=== PATIENT | female | born 1990 | race Caucasian/White ===

== ENCOUNTER → 2019-04-24 14:09 | Outpatient (CLI) | payer OTHER, SELFPAY ==
[2019-04-24 18:36] LABS: Bacteria Urine None Seen
[2019-04-24 19:12] LABS: Appearance Urine UA CLEAR; Bilirubin Urine UA NEGATIVE (NEGATIVE); Color Urine UA YELLOW; Glucose Urine UA NEGATIVE (Negative); Ketones Urine UA NEGATIVE (NEGATIVE); Leukocyte Esterase Urine UA TRACE (NEGATIVE); Nitrite Urine UA NEGATIVE (Negative); Occult Blood Urine UA NEGATIVE (Negative); Protein Urine UA NEGATIVE (Negative); Urobilinogen Urine UA 0.2 E.U./dL (0.2)
[2019-04-24 19:14] LABS: RBC Urine 0-1/HPF (0-5/HPF); WBC Urine 0-1/HPF (0-5/HPF)
== END ==
PROVIDERS: PCP Family Medicine; Visit Provider Family Medicine
DX: R30.0 Dysuria (principal)
CPT/HCPCS: 81001; 87086

== ENCOUNTER → 2019-04-26 07:32 | Outpatient (CLI) | payer OTHER, SELFPAY ==
--- NOTE | 2019-04-26 07:38 | DI.RAD.S_ITS ---
PROCEDURE: XR THORACIC SPINE 3V INDICATIONS: midline back pain approximately T11-12 level TECHNIQUE: 3 views of the thoracic spine were acquired. COMPARISON: None. FINDINGS: Bones: No fracture identified. Mild diffuse discogenic changes and endplate sclerosis. No definite disc space narrowing. Soft tissues: No paravertebral stripe thickening. IMPRESSION: Mild discogenic changes. No fracture. Dictated by: Kimani Frost M.D. on 04/26/2019 at 11:00 Approved by: Kimani Frost M.D. on 04/26/2019 at 11:07
[2019-04-26 09:02] LABS: Hemoglobin A1C% w Est Avg Glu 4.6 % (4.0-6.0)
[2019-04-26 09:12] LABS: Cholesterol 166 mg/dL (140-199); HDL Cholesterol 57 mg/dL (40-60); LDL Cholesterol Calculated 89 mg/dL (<100); Triglycerides 101 mg/dL (35-150)
[2019-04-26 09:44] LABS: Thyroid Stimulating Hormone 2.88 uIU/mL (0.47-4.68)
== END ==
PROVIDERS: PCP Family Medicine; Visit Provider Family Medicine
DX: M54.9 Dorsalgia, unspecified (principal); Z13.1 Encounter for screening for diabetes mellitus; Z13.220 Encounter for screening for lipoid disorders
CPT/HCPCS: 36415; 72072; 80061; 83036; 84443

== ENCOUNTER 2019-05-23 07:30 | Outpatient (RCR) | payer OTHER, SELFPAY ==
--- NOTE | 2019-04-23 17:00 | PT.OPPOC ---
Current Diagnoses Pain in right ankle and joints of right foot (04/23/19) Provider Visit Care Team Role Provider Type Roxy Loving MD Primary Care Provider Physician Specialty: Family Practice Address: [address] [place], [address] Email: [email or web address] ZACK Oliver Attending Provider Advanced Offset Duplicating Machine Operator Specialty: Medical Address: [facility], [address] Email: Plan Of Care PT-OP-T Assessment and Plan Start: 04/23/19 17:02 Freq: Status: Active Protocol: Document 04/23/19 17:04 RUBY (Rec: 04/23/19 17:07 RUBY [id number]) Physical Therapy Assessment Rehab Potential Rehabilitation Potential Good Evaluation Complexity Number of Personal Factors/Comorbidities 0 Number of Body Systems Impaired 1-2 Clinical Presentation at Evaluation Evolving Impairments Impairments Activity Tolerance Functional Mobility Pain Soft Tissue Mobility Strength Goals Four Impairment No HEP in place Alf Goal (LTG) Patient will report compliance and independence to ongoing progressive HEP to improve function. LTG Duration 4 wks Three Impairment Recurring right ankle sprain Alf Goal (LTG) Patient will have no report of ankle sprain in the next 6 weeks of weight bearing activities LTG Duration 5 wks Two Impairment Increasing symptoms with distance ambulation on uneven surface Flatwork Feeder Goal (LTG) Patient will have no report of increasing right ankle symptoms with more than 3 miles of ambulation on uneven surface. LTG Duration 4 wks One Impairment LEFS score of 62/80 Alf Goal (LTG) LEFS score of > 75 to enhance quality of life LTG Duration 4 wks Assessment Summary Assessment Pleasant 28 y/o F patient with a referring diagnosis of right ankle pain. Signs and symptoms identified as a right anterior talofibular and calcaneofibular ligament grade 1 sprain with remaining deficit of weaken evertors, tenderness due to high scarred soft tissue just below lateral malleolus and anterolateral TC joint just over bifurcate ankle ligaments . Muscular excursion reveals muscular imbalance with tight plantarflexors and evertors. Patient history and assessment reveals chronic type of injury that may persist if not treated earlier. Patient would greatly benefit with skilled PT to improve function by correcting muscular imbalance and educatiing patient with regards to safe high impact weight bearing activities at this time. Physical Therapy Plan Frequency and Duration Frequency of Treatment 2x/Week Duration of Treatment 6 weeks Plan of Care Start Date 04/23/19 Plan of Care End Date 06/04/19 Therapeutic Interventions Therapeutic Interventions Home Exercise Program Joint Mobilizations Manual Therapy Patient/Caregiver Education Self-Care/Home Management Soft Tissue Mobilization Taping Therapeutic Exercises Modalities Cold Pack/Ice Massage Electric Stimulation Hot Packs Ultrasound Next Visit Focus/Plan Next Note Type Treatment Note Next Visit Plan Manual therapy and modalities for pain, strengthening, coordination exercises. Plan of Care Dates Plan of Care Start Date 04/23/19 Plan of Care End Date 06/04/19 Please Sign and Return: I have reviewed this Plan of Care and certify that the skilled therapy services above are required to meet the patient?s needs. Physician Signature Date Printed Name and Credentials Clinical Instructor Signature Printed Name and Credentials
--- NOTE | 2019-04-23 17:00 | PT.OIE ---
Current Diagnoses Pain in right ankle and joints of right foot (04/23/19) Provider Visit Care Team Role Provider Type Roxy Loving MD Primary Care Provider Physician Specialty: Family Practice Address: [address] [place], [address] Email: [email or web address] ZACK Oliver Attending Provider Advanced Scuba Dive Training Instructor Specialty: Medical Address: [facility], [address] Email: Physical Therapy Initial Evaluation PT-OP-A Visit Information Start: 04/23/19 17:02 Freq: Status: Active Protocol: Document 04/23/19 17:00 EA (Rec: 04/24/19 07:32 EA [id number]) Out-Patient Physical Therapy Visit Information Visit Information Visit Type Initial Evaluation Visit Start Time 15:15 Visit Stop Time 16:00 Total Visit Minutes 35 Visit Number 1 Number of CERTIFIED RECREATIONAL THERAPIST Visits 0 Evaluation Information Evaluation Date 04/23/19 Precautions Precautions None identified PT-OP-B Current Condition Start: 04/23/19 17:02 Freq: Status: Active Protocol: Document 04/23/19 17:00 EA (Rec: 04/24/19 07:32 EA [id number]) Current Condition History of Current Condition Onset Date 2 months ago Current Complaints Right ankle pain History of Current Condition Patient reports present c/o right ankle pain started 2 months ago. She reports multiple history of both ankle sprain with no required hospitalization and healed with no formal PT. She reports pain mostly managed with ICE and OTC pain meds. She reports has very active lifestyle with regular few times a week of trail hiking which most of the time where she rolled her ankle. She denies diagnostic imaging in the past. Prior Treatments and Tests No formal treatment reported. No Imaging performed in the past. Future Testing and Treatments Planned None reported Treatment Goals Patient/Caregiver Goals 1. Patient would like to eliminate the pain. 2. To know ankle exercises to prevent recurrent ankle sprain . 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 [place] hiking. Current Functional Impairments (Reported) Functional Limitations- ADL's Indep with minimal difficulty in prolong standing Functional Limitations- Mobility/Gait Indep with no AD with no gait deviation Functional Limitations- Work/School Limited with prolong standing Functional Limitations- Recreation/ Pain increases with prolong Hobbies walking Personal Factors Other Personal Factors That May Effect None identified Therapy/Recovery PT-OP-C Subjective Start: 04/23/19 17:02 Freq: Status: Active Protocol: Document 04/23/19 17:00 EA (Rec: 04/25/19 07:20 EA [id number]) OP-PT Subjective Patient Comments Patient Comments Pt states nocturnal pain and mostly when ankle in inverted position Patient Reported Progress Same Patient Questionnaires Lower Extremity Functional Scale LEFS Score 62 LEFS Impairment 20 to 39% Impaired (Score 48- 62) OP-PT Pain Assessment Pain Assessment Grid Paper Pain Assessment Grid Completed Yes Location Right Lateral Ankle Pain Location Details Just below malleolus and anterolateral ankle joint Intensity 4 Scale Used Numeric (1 - 10) Description Aching Tender Tightness Pain Aggravating Factors Position Activity Standing Walking Dependent Position Patient Stated Pain Goal 0 PT-OP-F Manual Assessment Start: 04/23/19 17:02 Freq: Status: Active Protocol: Document 04/23/19 17:00 EA (Rec: 04/24/19 17:42 EA [id number]) Manual Assessments Soft Tissue Assessment Soft Tissue Mobility Assessment Tightness to Right ankle PF, Invertors Joint Mobility Assessment Joint Mobility Assessment Normal TC joint mobility. PT-OP-G Mobility & Gait Start: 04/23/19 17:02 Freq: Status: Active Protocol: Document 04/23/19 07:00 EA (Rec: 04/25/19 07:23 EA [id number]) OP Gait Assessment Comments Gait Comments Gait identified with near to normal gait Stair Climbing Evaluation Comments Stair Climbing Comments Min difficulty with stair descent leading with left PT-OP-J Posture/Palpation/Skin Start: 04/23/19 17:02 Freq: Status: Active Protocol: Document 04/23/19 17:00 EA (Rec: 04/24/19 17:42 EA [id number]) Posture Evaluation Comments Posture Comments Forefoot varus,right Palpation Assessment Location One Palpation Location Right ant talofib, calcaneofib lig Palpation Findings Tenderness PT-OP-K Range of Motion Start: 04/23/19 17:02 Freq: Status: Active Protocol: Document 04/23/19 17:10 EA (Rec: 04/23/19 17:13 EA [id number]) Hip Goniometric Range of Motion Hip Right Active Hip ROM WFL Yes Knee Goniometric Range of Motion Knee Right Knee ROM WFL Yes Ankle and Foot Goniometric Range of Motion Ankle and Foot Right Active Ankle/Foot ROM WFL Yes PT-OP-L Special Tests Start: 04/23/19 17:02 Freq: Status: Active Protocol: Document 04/23/19 17:13 EA (Rec: 04/23/19 17:14 EA [id number]) Special Tests Foot/Ankle Special Tests Rodriguez Test Results - Anterior Draw Test Results - Talor Tilt Test Results Varus + PT-OP-M Strength Start: 04/23/19 17:02 Freq: Status: Active Protocol: Document 04/23/19 17:10 EA (Rec: 04/23/19 17:13 EA [id number]) Ankle/Foot Strength Ankle and Foot Manual Muscle Testing Left Dorsiflexion (L4) 5 Normal Plantarflexion (S1) 5 Normal Inversion 5 Normal Eversion (S1) 5 Normal Right Dorsiflexion (L4) 5 Normal Plantarflexion (S1) 5 Normal Inversion 5 Normal Eversion (S1) 4- Good- PT-OP-Q Treatments Start: 04/23/19 17:02 Freq: Status: Active Protocol: Document 04/23/19 17:10 EA (Rec: 04/23/19 17:13 EA [id number]) Manual Therapy Treatment Soft Tissue Mobilization 1 Body Location lateral ankle joint/ligaments Mobilization Type Cross-Friction Myofascial Release Intensity/Depth Moderate PT-OP-T Assessment and Plan Start: 04/23/19 17:02 Freq: Status: Active Protocol: Document 04/23/19 17:04 EA (Rec: 04/23/19 17:07 EA [id number]) Physical Therapy Assessment Rehab Potential Rehabilitation Potential Good Evaluation Complexity Number of Personal Factors/Comorbidities 0 Number of Body Systems Impaired 1-2 Clinical Presentation at Evaluation Evolving Impairments Impairments Activity Tolerance Functional Mobility Pain Soft Tissue Mobility Strength Goals Four Impairment No HEP in place Seamless Tube Drawer Goal (LTG) Patient will report compliance and independence to ongoing progressive HEP to improve function. LTG Duration 4 wks Three Impairment Recurring right ankle sprain Skilled Nursing Goal (LTG) Patient will have no report of ankle sprain in the next 6 weeks of weight bearing activities LTG Duration 5 wks Two Impairment Increasing symptoms with distance ambulation on uneven surface Seamless Tube Drawer Goal (LTG) Patient will have no report of increasing right ankle symptoms with more than 3 miles of ambulation on uneven surface. LTG Duration 4 wks One Impairment LEFS score of 62/80 Skilled Nursing Goal (LTG) LEFS score of > 75 to enhance quality of life LTG Duration 4 wks Assessment Summary Assessment Pleasant 28 y/o F patient with a referring diagnosis of right ankle pain. Signs and symptoms identified as a right anterior talofibular and calcaneofibular ligament grade 1 sprain with remaining deficit of weaken evertors, tenderness due to high scarred soft tissue just below lateral malleolus and anterolateral TC joint just over bifurcate ankle ligaments . Muscular excursion reveals muscular imbalance with tight plantarflexors and evertors. Patient history and assessment reveals chronic type of injury that may persist if not treated earlier. Patient would greatly benefit with skilled PT to improve function by correcting muscular imbalance and educatiing patient with regards to safe high impact weight bearing activities at this time. Physical Therapy Plan Frequency and Duration Frequency of Treatment 2x/Week Duration of Treatment 6 weeks Plan of Care Start Date 04/23/19 Plan of Care End Date 06/04/19 Therapeutic Interventions Therapeutic Interventions Home Exercise Program Joint Mobilizations Manual Therapy Patient/Caregiver Education Self-Care/Home Management Soft Tissue Mobilization Taping Therapeutic Exercises Modalities Cold Pack/Ice Massage Electric Stimulation Hot Packs Ultrasound Next Visit Focus/Plan Next Note Type Treatment Note Next Visit Plan Manual therapy and modalities for pain, strengthening, coordination exercises.
--- NOTE | 2019-04-25 12:04 | PT.OTN ---
Current Diagnoses Pain in right ankle and joints of right foot (04/25/19) Physical Therapy Treatment Note PT-OP-A Visit Information Start: 04/23/19 17:02 Freq: Status: Active Protocol: Document 04/25/19 10:23 EA (Rec: 04/25/19 10:31 EA [id number]) Out-Patient Physical Therapy Visit Information Visit Information Visit Type Treatment Note Visit Start Time 09:45 Visit Stop Time 10:30 Total Visit Minutes 45 Visit Number 2 PT-OP-B Current Condition Start: 04/23/19 17:02 Freq: Status: Active Protocol: Document 04/23/19 17:00 EA (Rec: 04/24/19 07:32 EA [id number]) Current Condition History of Current Condition Onset Date 2 months ago Current Complaints Right ankle pain History of Current Condition Patient reports present c/o right ankle pain started 2 months ago. She reports multiple history of both ankle sprain with no required hospitalization and healed with no formal PT. She reports pain mostly managed with ICE and OTC pain meds. She reports has very active lifestyle with regular few times a week of trail hiking which most of the time where she rolled her ankle. She denies diagnostic imaging in the past. Prior Treatments and Tests No formal treatent reported. No Imaging performed in the past. Future Testing and Treatments Planned None reported Treatment Goals Patient/Caregiver Goals 1. Patient would like to eliminate the pain. 2. To know ankle exercises to prevent recurrent ankle sprain . 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 [place] hiking. Current Functional Impairments (Reported) Functional Limitations- ADL's Indep with minimal difficulty in prolong standing Functional Limitations- Mobility/Gait Indep with no AD with no gait deviation Functional Limitations- Work/School Limited with prolong standing Functional Limitations- Recreation/ Pain increases with prolong Hobbies walking Personal Factors Other Personal Factors That May Effect None identified Therapy/Recovery PT-OP-C Subjective Start: 04/23/19 17:02 Freq: Status: Active Protocol: Document 04/25/19 10:31 EA (Rec: 04/25/19 10:31 EA [id number]) OP-PT Subjective Patient Comments Patient Comments Pt reports compliant with HEP. PT-OP-F Manual Assessment Start: 04/23/19 17:02 Freq: Status: Active Protocol: Document 04/23/19 17:00 EA (Rec: 04/24/19 17:42 EA [id number]) Manual Assessments Soft Tissue Assessment Soft Tissue Mobility Assessment Tightness to Right ankle PF, Invertors Joint Mobility Assessment Joint Mobility Assessment Normal TC joint mobility. PT-OP-G Mobility & Gait Start: 04/23/19 17:02 Freq: Status: Active Protocol: Document 04/23/19 07:00 EA (Rec: 04/25/19 07:23 EA [id number]) OP Gait Assessment Comments Gait Comments Gait identified with near to normal gait Stair Climbing Evaluation Comments Stair Climbing Comments Min difficulty with stair descent leading with left PT-OP-J Posture/Palpation/Skin Start: 04/23/19 17:02 Freq: Status: Active Protocol: Document 04/23/19 17:00 EA (Rec: 04/24/19 17:42 EA [id number]) Posture Evaluation Comments Posture Comments Forefoot varus,right Palpation Assessment Location One Palpation Location Right ant talofib, calcaneofib lig Palpation Findings Tenderness PT-OP-K Range of Motion Start: 04/23/19 17:02 Freq: Status: Active Protocol: Document 04/23/19 17:10 EA (Rec: 04/23/19 17:13 EA [id number]) Hip Goniometric Range of Motion Hip Right Active Hip ROM WFL Yes Knee Goniometric Range of Motion Knee Right Knee ROM WFL Yes Ankle and Foot Goniometric Range of Motion Ankle and Foot Right Active Ankle/Foot ROM WFL Yes PT-OP-L Special Tests Start: 04/23/19 17:02 Freq: Status: Active Protocol: Document 04/23/19 17:13 EA (Rec: 04/23/19 17:14 EA [id number]) Special Tests Foot/Ankle Special Tests Rodriguez Test Results - Anterior Draw Test Results - Talor Tilt Test Results Varus + PT-OP-M Strength Start: 04/23/19 17:02 Freq: Status: Active Protocol: Document 04/23/19 17:10 EA (Rec: 04/23/19 17:13 EA [id number]) Ankle/Foot Strength Ankle and Foot Manual Muscle Testing Left Dorsiflexion (L4) 5 Normal Plantarflexion (S1) 5 Normal Inversion 5 Normal Eversion (S1) 5 Normal Right Dorsiflexion (L4) 5 Normal Plantarflexion (S1) 5 Normal Inversion 5 Normal Eversion (S1) 4- Good- PT-OP-Q Treatments Start: 04/23/19 17:02 Freq: Status: Active Protocol: Document 04/25/19 10:23 EA (Rec: 04/25/19 10:31 EA [id number]) Cardio Equipment Treadmill Duration (Minutes) 6 Speed 2-3 Incline 0-18 Therapeutic Exercises Sitting Exercises 1 Sitting Exercise Name Ankle eversion Side right Equipment Used YTB/GTB Reps/Minutes x12 reps each Standing Exercises 2 Standing Exercise Name calf stretch: straight and bent knee Side right Reps/Minutes x 3 reps x 30SH 1 Standing Exercise Name Steady lunges Side bilateral Reps/Minutes 10 reps each Manual Therapy Treatment Soft Tissue Mobilization 1 Body Location lateral ankle joint/ligaments, triceps surae Mobilization Type Cross-Friction Myofascial Release Sustained Pressure Intensity/Depth Moderate Body Position Sitting PT-OP-R Modalities Start: 04/23/19 17:02 Freq: Status: Active Protocol: Document 04/25/19 10:23 EA (Rec: 04/25/19 10:31 EA [id number]) Hot Pack/Cold Pack Treatment Cold Pack Location right ankle Patient Position Sitting Treatment Duration (minutes) 10 Patient Tolerance Good Ultrasound Therapy Treatment Right Lateral Ankle Treatment Duration (minutes) 5 Coupling Medium Ultrasound Gel Mode Setting Continuous Intensity Setting (w/cm2) 1.0 PT-OP-T Assessment and Plan Start: 04/23/19 17:02 Freq: Status: Active Protocol: Document 04/25/19 10:23 EA (Rec: 04/25/19 10:31 EA [id number]) Physical Therapy Assessment Assessment Summary Assessment Patient requires cues with lunges to correct form. Overall she tolerated manual therapy. Physical Therapy Plan Next Visit Focus/Plan Next Note Type Treatment Note Next Visit Plan re-assess last treatment session
--- NOTE | 2019-04-30 12:09 | PT.OTN ---
Current Diagnoses Pain in right ankle and joints of right foot (04/30/19) Physical Therapy Treatment Note PT-OP-A Visit Information Start: 04/23/19 17:02 Freq: Status: Active Protocol: Document 04/30/19 10:29 EA (Rec: 04/30/19 10:37 EA [id number]) Out-Patient Physical Therapy Visit Information Visit Information Visit Type Treatment Note Visit Start Time 09:45 Visit Stop Time 10:30 Total Visit Minutes 45 Visit Number 3 PT-OP-B Current Condition Start: 04/23/19 17:02 Freq: Status: Active Protocol: Document 04/23/19 17:00 EA (Rec: 04/24/19 07:32 EA [id number]) Current Condition History of Current Condition Onset Date 2 months ago Current Complaints Right ankle pain History of Current Condition Patient reports present c/o right ankle pain started 2 months ago. She reports multiple history of both ankle sprain with no required hospitalization and healed with no formal PT. She reports pain mostly managed with ICE and OTC pain meds. She reports has very active lifestyle with regular few times a week of trail hiking which most of the time where she rolled her ankle. She denies diagnostic imaging in the past. Prior Treatments and Tests No formal treatent reported. No Imaging performed in the past. Future Testing and Treatments Planned None reported Treatment Goals Patient/Caregiver Goals 1. Patient would like to eliminate the pain. 2. To know ankle exercises to prevent recurrent ankle sprain . 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 [place] hiking. Current Functional Impairments (Reported) Functional Limitations- ADL's Indep with minimal difficulty in prolong standing Functional Limitations- Mobility/Gait Indep with no AD with no gait deviation Functional Limitations- Work/School Limited with prolong standing Functional Limitations- Recreation/ Pain increases with prolong Hobbies walking Personal Factors Other Personal Factors That May Effect None identified Therapy/Recovery PT-OP-C Subjective Start: 04/23/19 17:02 Freq: Status: Active Protocol: Document 04/30/19 10:29 EA (Rec: 04/30/19 10:37 EA [id number]) OP-PT Subjective Patient Comments Patient Comments Pt reports would like to learn more about ankle stability exercises; states last session feels good and no increased of symptoms. PT-OP-F Manual Assessment Start: 04/23/19 17:02 Freq: Status: Active Protocol: Document 04/23/19 17:00 EA (Rec: 04/24/19 17:42 EA [id number]) Manual Assessments Soft Tissue Assessment Soft Tissue Mobility Assessment Tightness to Right ankle PF, Invertors Joint Mobility Assessment Joint Mobility Assessment Normal TC joint mobility. PT-OP-G Mobility & Gait Start: 04/23/19 17:02 Freq: Status: Active Protocol: Document 04/23/19 07:00 EA (Rec: 04/25/19 07:23 EA [id number]) OP Gait Assessment Comments Gait Comments Gait identified with near to normal gait Stair Climbing Evaluation Comments Stair Climbing Comments Min difficulty with stair descent leading with left PT-OP-J Posture/Palpation/Skin Start: 04/23/19 17:02 Freq: Status: Active Protocol: Document 04/23/19 17:00 EA (Rec: 04/24/19 17:42 EA [id number]) Posture Evaluation Comments Posture Comments Forefoot varus,right Palpation Assessment Location One Palpation Location Right ant talofib, calcaneofib lig Palpation Findings Tenderness PT-OP-K Range of Motion Start: 04/23/19 17:02 Freq: Status: Active Protocol: Document 04/23/19 17:10 EA (Rec: 04/23/19 17:13 EA [id number]) Hip Goniometric Range of Motion Hip Right Active Hip ROM WFL Yes Knee Goniometric Range of Motion Knee Right Knee ROM WFL Yes Ankle and Foot Goniometric Range of Motion Ankle and Foot Right Active Ankle/Foot ROM WFL Yes PT-OP-L Special Tests Start: 04/23/19 17:02 Freq: Status: Active Protocol: Document 04/23/19 17:13 EA (Rec: 04/23/19 17:14 EA [id number]) Special Tests Foot/Ankle Special Tests Rodriguez Test Results - Anterior Draw Test Results - Talor Tilt Test Results Varus + PT-OP-M Strength Start: 04/23/19 17:02 Freq: Status: Active Protocol: Document 04/23/19 17:10 EA (Rec: 07/30/19 17:13 EA [id number]) Ankle/Foot Strength Ankle and Foot Manual Muscle Testing Left Dorsiflexion (L4) 5 Normal Plantarflexion (S1) 5 Normal Inversion 5 Normal Eversion (S1) 5 Normal Right Dorsiflexion (L4) 5 Normal Plantarflexion (S1) 5 Normal Inversion 5 Normal Eversion (S1) 4- Good- PT-OP-Q Treatments Start: 04/23/19 17:02 Freq: Status: Active Protocol: Document 04/30/19 10:29 EA (Rec: 04/30/19 10:37 EA [id number]) Cardio Equipment Elliptical Duration (Minutes) 5 Resistance 1 Gym Equipment Sport Cord 1 Exercise Details Right side step Cord/Resistance red Reps/Duration x 10 reps x 2 sets Comments Pause to middle for stability Therapeutic Exercises Sitting Exercises 1 Sitting Exercise Name Ankle eversion Side right Equipment Used YTB/GTB Reps/Minutes x12 reps each Standing Exercises 5 Standing Exercise Name Floors square bent knee Reps/Minutes x 3 laps; l;okiing to without looking Comments In/out steps; slow to fast 4 Standing Exercise Name BUSO Squats Reps/Minutes x 12 reps 3 Standing Exercise Name BUSO step up/down, side in and out Reps/Minutes x 30 secs x 3 2 Standing Exercise Name calf stretch: straight and bent knee Side right Reps/Minutes x 3 reps x 30SH 1 Standing Exercise Name Steady lunges Side bilateral Reps/Minutes 10 reps each Comments BUSO: right and left Manual Therapy Treatment Soft Tissue Mobilization 1 Body Location lateral ankle joint/ligaments, triceps surae Mobilization Type Cross-Friction Myofascial Release Sustained Pressure Intensity/Depth Moderate Body Position Sitting PT-OP-R Modalities Start: 04/23/19 17:02 Freq: Status: Active Protocol: Document 04/30/19 10:29 EA (Rec: 04/30/19 10:37 EA [id number]) Hot Pack/Cold Pack Treatment Cold Pack Location right ankle Patient Position Sitting Treatment Duration (minutes) 10 Patient Tolerance Good PT-OP-T Assessment and Plan Start: 04/23/19 17:02 Freq: Status: Active Protocol: Document 04/30/19 10:29 EA (Rec: 04/30/19 10:37 EA [id number]) Physical Therapy Assessment Assessment Summary Assessment Pt tolerated treatment well. Less tender to lateral ankle noted at this time. Patient is progressing well. Physical Therapy Plan Next Visit Focus/Plan Next Note Type Treatment Note Advance to dynamic ankle stability exercises
--- NOTE | 2019-05-03 09:47 | PT.OTN ---
Current Diagnoses Pain in right ankle and joints of right foot (05/03/19) Physical Therapy Treatment Note PT-OP-A Visit Information Start: 04/23/19 17:02 Freq: Status: Active Protocol: Document 05/03/19 09:45 GGD (Rec: 05/03/19 13:46 GGD [id number]) Out-Patient Physical Therapy Visit Information Visit Information Visit Type Treatment Note Visit Start Time 09:02 Visit Stop Time 09:47 Total Visit Minutes 45 Visit Number 4 Number of CELL BIOLOGY SCIENTIST Visits 1 PT-OP-B Current Condition Start: 04/23/19 17:02 Freq: Status: Active Protocol: Document 04/23/19 17:00 EA (Rec: 04/24/19 07:32 EA [id number]) Current Condition History of Current Condition Onset Date 2 months ago Current Complaints Right ankle pain History of Current Condition Patient reports present c/o right ankle pain started 2 months ago. She reports multiple history of both ankle sprain with no required hospitalization and healed with no formal PT. She reports pain mostly managed with ICE and OTC pain meds. She reports has very active lifestyle with regular few times a week of trail hiking which most of the time where she rolled her ankle. She denies diagnostic imaging in the past. Prior Treatments and Tests No formal treatent reported. No Imaging performed in the past. Future Testing and Treatments Planned None reported Treatment Goals Patient/Caregiver Goals 1. Patient would like to eliminate the pain. 2. To know ankle exercises to prevent recurrent ankle sprain . 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 [place]. Current Functional Impairments (Reported) Functional Limitations- ADL's Indep with minimal difficulty in prolong standing Functional Limitations- Mobility/Gait Indep with no AD with no gait deviation Functional Limitations- Work/School Limited with prolong standing Functional Limitations- Recreation/ Pain increases with prolong Hobbies walking Personal Factors Other Personal Factors That May Effect None identified Therapy/Recovery PT-OP-C Subjective Start: 04/23/19 17:02 Freq: Status: Active Protocol: Document 05/03/19 09:45 GGD (Rec: 05/03/19 13:46 GGD [id number]) OP-PT Subjective Patient Comments Patient Comments Pt states her ankle has been hurting at night. PT-OP-F Manual Assessment Start: 04/23/19 17:02 Freq: Status: Active Protocol: Document 04/23/19 17:00 EA (Rec: 04/24/19 17:42 EA [id number]) Manual Assessments Soft Tissue Assessment Soft Tissue Mobility Assessment Tightness to Right ankle PF, Invertors Joint Mobility Assessment Joint Mobility Assessment Normal TC joint mobility. PT-OP-G Mobility & Gait Start: 04/23/19 17:02 Freq: Status: Active Protocol: Document 04/23/19 07:00 EA (Rec: 04/25/19 07:23 EA [id number]) OP Gait Assessment Comments Gait Comments Gait identified with near to normal gait Stair Climbing Evaluation Comments Stair Climbing Comments Min difficulty with stair descent leading with left PT-OP-J Posture/Palpation/Skin Start: 04/23/19 17:02 Freq: Status: Active Protocol: Document 04/23/19 17:00 EA (Rec: 04/24/19 17:42 EA [id number]) Posture Evaluation Comments Posture Comments Forefoot varus,right Palpation Assessment Location One Palpation Location Right ant talofib, calcaneofib lig Palpation Findings Tenderness PT-OP-K Range of Motion Start: 04/23/19 17:02 Freq: Status: Active Protocol: Document 04/23/19 17:10 EA (Rec: 04/23/19 17:13 EA [id number]) Hip Goniometric Range of Motion Hip Right Active Hip ROM WFL Yes Knee Goniometric Range of Motion Knee Right Knee ROM WFL Yes Ankle and Foot Goniometric Range of Motion Ankle and Foot Right Active Ankle/Foot ROM WFL Yes PT-OP-L Special Tests Start: 04/23/19 17:02 Freq: Status: Active Protocol: Document 04/23/19 17:13 EA (Rec: 04/23/19 17:14 EA [id number]) Special Tests Foot/Ankle Special Tests Rodriguez Test Results - Anterior Draw Test Results - Talor Tilt Test Results Varus + PT-OP-M Strength Start: 04/23/19 17:02 Freq: Status: Active Protocol: Document 04/23/19 17:10 EA (Rec: 04/23/19 17:13 EA [id number]) Ankle/Foot Strength Ankle and Foot Manual Muscle Testing Left Dorsiflexion (L4) 5 Normal Plantarflexion (S1) 5 Normal Inversion 5 Normal Eversion (S1) 5 Normal Right Dorsiflexion (L4) 5 Normal Plantarflexion (S1) 5 Normal Inversion 5 Normal Eversion (S1) 4- Good- PT-OP-Q Treatments Start: 04/23/19 17:02 Freq: Status: Active Protocol: Document 05/03/19 09:45 GGD (Rec: 05/03/19 13:46 GGD [id number]) Gym Equipment Shuttle Balance 2 Details red Reps/Duration 5 min Comments squats, step stance EC, side NBOS and step stance Sport Cord 1 Exercise Details Right side step Cord/Resistance red Reps/Duration x 10 reps x 2 sets Comments Pause to middle for stability Therapeutic Exercises Sitting Exercises 2 Sitting Exercise Name hip IR/ER Side bilateral Equipment Used Level 3 Reps/Minutes 10 Standing Exercises squats Standing Exercise Name SL and double leg. Side bilateral Reps/Minutes 10 x 2 Standing Exercise Name calf stretch: straight and bent knee Side right Reps/Minutes x 3 reps x 30SH Manual Therapy Treatment Soft Tissue Mobilization 1 Body Location lateral ankle joint/ligaments, triceps surae Mobilization Type Cross-Friction Myofascial Release Sustained Pressure Intensity/Depth Moderate Body Position Sitting PT-OP-R Modalities Start: 04/23/19 17:02 Freq: Status: Active Protocol: Document 04/30/19 10:29 EA (Rec: 04/30/19 10:37 EA [id number]) Hot Pack/Cold Pack Treatment Cold Pack Location right ankle Patient Position Sitting Treatment Duration (minutes) 10 Patient Tolerance Good PT-OP-T Assessment and Plan Start: 04/23/19 17:02 Freq: Status: Active Protocol: Document 05/03/19 09:45 GGD (Rec: 05/03/19 13:46 GGD [email or web address]) Physical Therapy Assessment Assessment Summary Assessment Pt needed cues for foot control with exercise. She continue to have tenderness to lateral ankle. Physical Therapy Plan Next Visit Focus/Plan Next Note Type Treatment Note Next Visit Plan Progress strengthening,
--- NOTE | 2019-05-07 10:41 | PT.OTN ---
Current Diagnoses Pain in right ankle and joints of right foot (05/07/19) Physical Therapy Treatment Note PT-OP-A Visit Information Start: 04/23/19 17:02 Freq: Status: Active Protocol: Document 05/07/19 10:27 EA (Rec: 05/07/19 10:33 EA [id number]) Out-Patient Physical Therapy Visit Information Visit Information Visit Type Treatment Note Visit Start Time 09:45 Visit Stop Time 10:30 Total Visit Minutes 45 Visit Number 5 Number of PRESS TENDER Visits 2 PT-OP-B Current Condition Start: 04/23/19 17:02 Freq: Status: Active Protocol: Document 04/23/19 17:00 EA (Rec: 04/24/19 07:32 EA [id number]) Current Condition History of Current Condition Onset Date 2 months ago Current Complaints Right ankle pain History of Current Condition Patient reports present c/o right ankle pain started 2 months ago. She reports multiple history of both ankle sprain with no required hospitalization and healed with no formal PT. She reports pain mostly managed with ICE and OTC pain meds. She reports has very active lifestyle with regular few times a week of trail hiking which most of the time where she rolled her ankle. She denies diagnostic imaging in the past. Prior Treatments and Tests No formal treatent reported. No Imaging performed in the past. Future Testing and Treatments Planned None reported Treatment Goals Patient/Caregiver Goals 1. Patient would like to eliminate the pain. 2. To know ankle exercises to prevent recurrent ankle sprain . 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 [place] hiking. Current Functional Impairments (Reported) Functional Limitations- ADL's Indep with minimal difficulty in prolong standing Functional Limitations- Mobility/Gait Indep with no AD with no gait deviation Functional Limitations- Work/School Limited with prolong standing Functional Limitations- Recreation/ Pain increases with prolong Hobbies walking Personal Factors Other Personal Factors That May Effect None identified Therapy/Recovery PT-OP-C Subjective Start: 04/23/19 17:02 Freq: Status: Active Protocol: Document 05/07/19 10:27 EA (Rec: 05/07/19 10:33 EA [id number]) OP-PT Subjective Patient Comments Patient Comments Pt reports changed shoes at this time due to frequent ankle rolling without injury every after session. She reports that pain at night and with mobility is located just below medial malleolus; states tender but not with activity. PT-OP-F Manual Assessment Start: 04/23/19 17:02 Freq: Status: Active Protocol: Document 04/23/19 17:00 EA (Rec: 04/24/19 17:42 EA [id number]) Manual Assessments Soft Tissue Assessment Soft Tissue Mobility Assessment Tightness to Right ankle PF, Invertors Joint Mobility Assessment Joint Mobility Assessment Normal TC joint mobility. PT-OP-G Mobility & Gait Start: 04/23/19 17:02 Freq: Status: Active Protocol: Document 04/23/19 07:00 EA (Rec: 04/25/19 07:23 EA [id number]) OP Gait Assessment Comments Gait Comments Gait identified with near to normal gait Stair Climbing Evaluation Comments Stair Climbing Comments Min difficulty with stair descent leading with left PT-OP-J Posture/Palpation/Skin Start: 04/23/19 17:02 Freq: Status: Active Protocol: Document 04/23/19 17:00 EA (Rec: 04/24/19 17:42 EA [id number]) Posture Evaluation Comments Posture Comments Forefoot varus,right Palpation Assessment Location One Palpation Location Right ant talofib, calcaneofib lig Palpation Findings Tenderness PT-OP-K Range of Motion Start: 04/23/19 17:02 Freq: Status: Active Protocol: Document 04/23/19 17:10 EA (Rec: 04/23/19 17:13 EA [id number]) Hip Goniometric Range of Motion Hip Right Active Hip ROM WFL Yes Knee Goniometric Range of Motion Knee Right Knee ROM WFL Yes Ankle and Foot Goniometric Range of Motion Ankle and Foot Right Active Ankle/Foot ROM WFL Yes PT-OP-L Special Tests Start: 04/23/19 17:02 Freq: Status: Active Protocol: Document 04/23/19 17:13 EA (Rec: 04/23/19 17:14 EA [id number]) Special Tests Foot/Ankle Special Tests Rodriguez Test Results - Anterior Draw Test Results - Talor Tilt Test Results Varus + PT-OP-M Strength Start: 04/23/19 17:02 Freq: Status: Active Protocol: Document 04/23/19 17:10 EA (Rec: 04/23/19 17:13 EA [id number]) Ankle/Foot Strength Ankle and Foot Manual Muscle Testing Left Dorsiflexion (L4) 5 Normal Plantarflexion (S1) 5 Normal Inversion 5 Normal Eversion (S1) 5 Normal Right Dorsiflexion (L4) 5 Normal Plantarflexion (S1) 5 Normal Inversion 5 Normal Eversion (S1) 4- Good- PT-OP-Q Treatments Start: 04/23/19 17:02 Freq: Status: Active Protocol: Document 05/07/19 10:27 EA (Rec: 05/07/19 10:33 EA [id number]) Therapeutic Exercises Sitting Exercises 2 Sitting Exercise Name hip IR Side bilateral Equipment Used Yellow to green Reps/Minutes 8-12 x 2 sets 1 Sitting Exercise Name Ankle inversion Side right Equipment Used YTB/GTB Reps/Minutes x12 reps each Standing Exercises squats Standing Exercise Name SL and double leg. Side bilateral Reps/Minutes 10 x Comments with toes curling and increased arches 2 Standing Exercise Name calf stretch: straight and bent knee Side right Reps/Minutes x 3 reps x 30SH Self-Care/Home Management Treatment Education Patient Education Home Exercise Program Joint Protection Pain Management Posture PT-OP-R Modalities Start: 04/23/19 17:02 Freq: Status: Active Protocol: Document 05/07/19 10:27 EA (Rec: 05/07/19 10:33 EA [id number]) Hot Pack/Cold Pack Treatment Cold Pack Location right ankle Patient Position Sitting Treatment Duration (minutes) 10 Patient Tolerance Good Ultrasound Therapy Treatment Right Medial Distal Ankle Treatment Duration (minutes) 4 Patient Position Sitting Frequency Setting (mHz) 3 Intensity Setting (w/cm2) 1 PT-OP-T Assessment and Plan Start: 04/23/19 17:02 Freq: Status: Active Protocol: Document 05/07/19 10:33 EA (Rec: 05/07/19 10:38 EA [id number]) Physical Therapy Assessment Assessment Summary Assessment Performed quick MMT and reveals weaken both HIP internal rotators , right ankle invertors with a grade of 4-/5. Foot posture reveals slight everted and depressed right foot which indicating weak invertors. No noted any signs of acute inflammation. Educated and demonstrates with HEP additions with clear understanding. Physical Therapy Plan Next Visit Focus/Plan Next Note Type Treatment Note Next Visit Plan cont with isolate right ankle and both hip IR srengthening
--- NOTE | 2019-05-09 12:54 | PT.OTN ---
Current Diagnoses Pain in right ankle and joints of right foot (05/09/19) Physical Therapy Treatment Note PT-OP-A Visit Information Start: 04/23/19 17:02 Freq: Status: Active Protocol: Document 05/09/19 10:30 EA (Rec: 05/09/19 10:34 EA [id number]) Out-Patient Physical Therapy Visit Information Visit Information Visit Type Treatment Note Visit Start Time 09:45 Visit Stop Time 10:30 Total Visit Minutes 48 Visit Number 6 Number of RELEASE SPECIALIST Visits 2 PT-OP-B Current Condition Start: 04/23/19 17:02 Freq: Status: Active Protocol: Document 04/23/19 17:00 EA (Rec: 04/24/19 07:32 EA [id number]) Current Condition History of Current Condition Onset Date 2 months ago Current Complaints Right ankle pain History of Current Condition Patient reports present c/o right ankle pain started 2 months ago. She reports multiple history of both ankle sprain with no required hospitalization and healed with no formal PT. She reports pain mostly managed with ICE and OTC pain meds. She reports has very active lifestyle with regular few times a week of trail hiking which most of the time where she rolled her ankle. She denies diagnostic imaging in the past. Prior Treatments and Tests No formal treatent reported. No Imaging performed in the past. Future Testing and Treatments Planned None reported Treatment Goals Patient/Caregiver Goals 1. Patient would like to eliminate the pain. 2. To know ankle exercises to prevent recurrent ankle sprain . 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 [place] hiking. Current Functional Impairments (Reported) Functional Limitations- ADL's Indep with minimal difficulty in prolong standing Functional Limitations- Mobility/Gait Indep with no AD with no gait deviation Functional Limitations- Work/School Limited with prolong standing Functional Limitations- Recreation/ Pain increases with prolong Hobbies walking Personal Factors Other Personal Factors That May Effect None identified Therapy/Recovery PT-OP-C Subjective Start: 04/23/19 17:02 Freq: Status: Active Protocol: Document 05/09/19 10:30 EA (Rec: 05/09/19 10:34 EA [id number]) OP-PT Subjective Patient Comments Patient Comments Pt reports no pain or discomfort in the last 2 days; states feeling much better. PT-OP-F Manual Assessment Start: 04/23/19 17:02 Freq: Status: Active Protocol: Document 04/23/19 17:00 EA (Rec: 04/24/19 17:42 EA [id number]) Manual Assessments Soft Tissue Assessment Soft Tissue Mobility Assessment Tightness to Right ankle PF, Invertors Joint Mobility Assessment Joint Mobility Assessment Normal TC joint mobility. PT-OP-G Mobility & Gait Start: 04/23/19 17:02 Freq: Status: Active Protocol: Document 04/23/19 07:00 EA (Rec: 04/25/19 07:23 EA [id number]) OP Gait Assessment Comments Gait Comments Gait identified with near to normal gait Stair Climbing Evaluation Comments Stair Climbing Comments Min difficulty with stair descent leading with left PT-OP-J Posture/Palpation/Skin Start: 04/23/19 17:02 Freq: Status: Active Protocol: Document 04/23/19 17:00 EA (Rec: 04/24/19 17:42 EA [id number]) Posture Evaluation Comments Posture Comments Forefoot varus,right Palpation Assessment Location One Palpation Location Right ant talofib, calcaneofib lig Palpation Findings Tenderness PT-OP-K Range of Motion Start: 04/23/19 17:02 Freq: Status: Active Protocol: Document 04/23/19 17:10 EA (Rec: 04/23/19 17:13 EA [id number]) Hip Goniometric Range of Motion Hip Right Active Hip ROM WFL Yes Knee Goniometric Range of Motion Knee Right Knee ROM WFL Yes Ankle and Foot Goniometric Range of Motion Ankle and Foot Right Active Ankle/Foot ROM WFL Yes PT-OP-L Special Tests Start: 04/23/19 17:02 Freq: Status: Active Protocol: Document 04/23/19 17:13 EA (Rec: 04/23/19 17:14 EA [id number]) Special Tests Foot/Ankle Special Tests Rodriguez Test Results - Anterior Draw Test Results - Talor Tilt Test Results Varus + PT-OP-M Strength Start: 04/23/19 17:02 Freq: Status: Active Protocol: Document 04/23/19 17:10 EA (Rec: 04/23/19 17:13 EA [id number]) Ankle/Foot Strength Ankle and Foot Manual Muscle Testing Left Dorsiflexion (L4) 5 Normal Plantarflexion (S1) 5 Normal Inversion 5 Normal Eversion (S1) 5 Normal Right Dorsiflexion (L4) 5 Normal Plantarflexion (S1) 5 Normal Inversion 5 Normal Eversion (S1) 4- Good- PT-OP-Q Treatments Start: 04/23/19 17:02 Freq: Status: Active Protocol: Document 05/09/19 10:30 EA (Rec: 05/09/19 10:34 EA [id number]) Cardio Equipment Elliptical Duration (Minutes) 5 Resistance 1 Therapeutic Exercises Sitting Exercises 2 Sitting Exercise Name hip IR Side bilateral Equipment Used Yellow to green Reps/Minutes 8-12 x 2 sets 1 Sitting Exercise Name Ankle inversion Side right Equipment Used YTB/GTB Reps/Minutes x12 reps each Standing Exercises squats Standing Exercise Name SL and double leg. Side bilateral Reps/Minutes 10 x 2 sets Comments with toes curling and increased arches 2 Standing Exercise Name calf stretch: straight and bent knee Side right Reps/Minutes x 3 reps x 30SH 1 Standing Exercise Name Steady lunges Side bilateral Reps/Minutes 10 reps each x 2 Manual Therapy Treatment Soft Tissue Mobilization 1 Body Location lateral ankle joint/ligaments, triceps surae Mobilization Type Cross-Friction Myofascial Release Sustained Pressure Intensity/Depth Moderate Body Position Sitting PT-OP-R Modalities Start: 04/23/19 17:02 Freq: Status: Active Protocol: Document 05/09/19 10:30 EA (Rec: 05/09/19 10:34 EA [id number]) Hot Pack/Cold Pack Treatment Cold Pack Location right ankle Patient Position Sitting Treatment Duration (minutes) 10 Patient Tolerance Good Ultrasound Therapy Treatment Right Medial Distal Ankle Treatment Duration (minutes) 4 Patient Position Sitting Frequency Setting (mHz) 3 Intensity Setting (w/cm2) 1 PT-OP-T Assessment and Plan Start: 04/23/19 17:02 Freq: Status: Active Protocol: Document 05/09/19 10:30 EA (Rec: 05/09/19 10:34 EA [id number]) Physical Therapy Assessment Assessment Summary Assessment Tolerated treatment well. Requires cues to increase medial arch with squat and lunges. Physical Therapy Plan Next Visit Focus/Plan Next Note Type Treatment Note Next Visit Plan Progress strengthening in standing
--- NOTE | 2019-05-13 13:48 | PT.OTN ---
Current Diagnoses Pain in right ankle and joints of right foot (05/13/19) Physical Therapy Treatment Note PT-OP-A Visit Information Start: 04/23/19 17:02 Freq: Status: Active Protocol: Document 05/13/19 13:03 EA (Rec: 05/13/19 13:11 EA [id number]) Out-Patient Physical Therapy Visit Information Visit Information Visit Type Treatment Note Visit Start Time 12:15 Visit Stop Time 13:00 Total Visit Minutes 48 Visit Number 7 Number of JAVA TECH LEAD Visits 2 PT-OP-B Current Condition Start: 04/23/19 17:02 Freq: Status: Active Protocol: Document 04/23/19 17:00 EA (Rec: 04/24/19 07:32 EA [id number]) Current Condition History of Current Condition Onset Date 2 months ago Current Complaints Right ankle pain History of Current Condition Patient reports present c/o right ankle pain started 2 months ago. She reports multiple history of both ankle sprain with no required hospitalization and healed with no formal PT. She reports pain mostly managed with ICE and OTC pain meds. She reports has very active lifestyle with regular few times a week of trail hiking which most of the time where she rolled her ankle. She denies diagnostic imaging in the past. Prior Treatments and Tests No formal treatent reported. No Imaging performed in the past. Future Testing and Treatments Planned None reported Treatment Goals Patient/Caregiver Goals 1. Patient would like to eliminate the pain. 2. To know ankle exercises to prevent recurrent ankle sprain . 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 [place] hiking. Current Functional Impairments (Reported) Functional Limitations- ADL's Indep with minimal difficulty in prolong standing Functional Limitations- Mobility/Gait Indep with no AD with no gait deviation Functional Limitations- Work/School Limited with prolong standing Functional Limitations- Recreation/ Pain increases with prolong Hobbies walking Personal Factors Other Personal Factors That May Effect None identified Therapy/Recovery PT-OP-C Subjective Start: 04/23/19 17:02 Freq: Status: Active Protocol: Document 05/13/19 13:03 EA (Rec: 05/13/19 13:11 EA [id number]) OP-PT Subjective Patient Comments Patient Comments Pt reports she was able to perform mountain biking and others high intensed activity with no increased of right foot symptoms. PT-OP-F Manual Assessment Start: 04/23/19 17:02 Freq: Status: Active Protocol: Document 04/23/19 17:00 EA (Rec: 04/24/19 17:42 EA [id number]) Manual Assessments Soft Tissue Assessment Soft Tissue Mobility Assessment Tightness to Right ankle PF, Invertors Joint Mobility Assessment Joint Mobility Assessment Normal TC joint mobility. PT-OP-G Mobility & Gait Start: 04/23/19 17:02 Freq: Status: Active Protocol: Document 04/23/19 07:00 EA (Rec: 04/25/19 07:23 EA [id number]) OP Gait Assessment Comments Gait Comments Gait identified with near to normal gait Stair Climbing Evaluation Comments Stair Climbing Comments Min difficulty with stair descent leading with left PT-OP-J Posture/Palpation/Skin Start: 04/23/19 17:02 Freq: Status: Active Protocol: Document 04/23/19 17:00 EA (Rec: 04/24/19 17:42 EA [id number]) Posture Evaluation Comments Posture Comments Forefoot varus,right Palpation Assessment Location One Palpation Location Right ant talofib, calcaneofib lig Palpation Findings Tenderness PT-OP-K Range of Motion Start: 04/23/19 17:02 Freq: Status: Active Protocol: Document 04/23/19 17:10 EA (Rec: 04/23/19 17:13 EA [id number]) Hip Goniometric Range of Motion Hip Right Active Hip ROM WFL Yes Knee Goniometric Range of Motion Knee Right Knee ROM WFL Yes Ankle and Foot Goniometric Range of Motion Ankle and Foot Right Active Ankle/Foot ROM WFL Yes PT-OP-L Special Tests Start: 04/23/19 17:02 Freq: Status: Active Protocol: Document 04/23/19 17:13 EA (Rec: 04/23/19 17:14 EA [id number]) Special Tests Foot/Ankle Special Tests Rodriguez Test Results - Anterior Draw Test Results - Talor Tilt Test Results Varus + PT-OP-M Strength Start: 04/23/19 17:02 Freq: Status: Active Protocol: Document 04/23/19 17:10 EA (Rec: 04/23/19 17:13 EA [id number]) Ankle/Foot Strength Ankle and Foot Manual Muscle Testing Left Dorsiflexion (L4) 5 Normal Plantarflexion (S1) 5 Normal Inversion 5 Normal Eversion (S1) 5 Normal Right Dorsiflexion (L4) 5 Normal Plantarflexion (S1) 5 Normal Inversion 5 Normal Eversion (S1) 4- Good- PT-OP-Q Treatments Start: 04/23/19 17:02 Freq: Status: Active Protocol: Document 05/13/19 13:03 EA (Rec: 05/13/19 13:11 EA [id number]) Cardio Equipment Elliptical Duration (Minutes) 5 Resistance 3 Gym Equipment Sport Cord 1 Exercise Details Right side step Cord/Resistance red Reps/Duration 6 mins Comments Pause to middle for stability. Use BOSU for side to side squat Therapeutic Exercises Sitting Exercises 2 Sitting Exercise Name hip IR Side bilateral Equipment Used blue Reps/Minutes 8-12 x 2 sets 1 Sitting Exercise Name Ankle inversion Side right Equipment Used red TB Reps/Minutes x12 reps each Standing Exercises squats Standing Exercise Name SL and double leg. Side bilateral Reps/Minutes 10 x 2 sets Comments with toes curling and increased arches 5 Standing Exercise Name Floors square bent knee Reps/Minutes x 3 laps; l;okiing to without looking Comments In/out steps; slow to fast 4 Standing Exercise Name BUSO Squats Reps/Minutes x 12 reps 3 Standing Exercise Name BUSO step up/down, side in and out Reps/Minutes x 30 secs x 3 2 Standing Exercise Name calf stretch: straight and bent knee Side right Reps/Minutes x 3 reps x 30SH 1 Standing Exercise Name Steady lunges Side bilateral Reps/Minutes 10 reps each x 2 Comments w/ DB front raise Manual Therapy Treatment Soft Tissue Mobilization 1 Body Location lateral ankle joint/ligaments, triceps surae Mobilization Type Cross-Friction Myofascial Release Sustained Pressure Intensity/Depth Moderate Body Position Sitting PT-OP-R Modalities Start: 04/23/19 17:02 Freq: Status: Active Protocol: Document 05/13/19 13:03 EA (Rec: 05/13/19 13:11 EA [id number]) Hot Pack/Cold Pack Treatment Cold Pack Location right ankle Patient Position Sitting Treatment Duration (minutes) 10 Patient Tolerance Good PT-OP-T Assessment and Plan Start: 04/23/19 17:02 Freq: Status: Active Protocol: Document 05/13/19 13:03 RUBY (Rec: 05/13/19 13:11 EA [id number]) Physical Therapy Assessment Assessment Summary Assessment Improved exercises tolerance with no increased of symptoms. Patient is progressing well. Physical Therapy Plan Next Visit Focus/Plan Next Note Type Treatment Note Next Visit Plan Progress strengthening,
--- NOTE | 2019-05-15 15:06 | PT.OTN ---
Current Diagnoses Pain in right ankle and joints of right foot (05/15/19) Physical Therapy Treatment Note PT-OP-A Visit Information Start: 04/23/19 17:02 Freq: Status: Active Protocol: Document 05/15/19 14:29 EA (Rec: 05/15/19 14:38 EA [id number]) Out-Patient Physical Therapy Visit Information Visit Information Visit Type Treatment Note Visit Start Time 13:45 Visit Stop Time 14:38 Total Visit Minutes 53 Visit Number 8 PT-OP-B Current Condition Start: 04/23/19 17:02 Freq: Status: Active Protocol: Document 04/23/19 17:00 EA (Rec: 04/24/19 07:32 EA [id number]) Current Condition History of Current Condition Onset Date 2 months ago Current Complaints Right ankle pain History of Current Condition Patient reports present c/o right ankle pain started 2 months ago. She reports multiple history of both ankle sprain with no required hospitalization and healed with no formal PT. She reports pain mostly managed with ICE and OTC pain meds. She reports has very active lifestyle with regular few times a week of trail hiking which most of the time where she rolled her ankle. She denies diagnostic imaging in the past. Prior Treatments and Tests No formal treatent reported. No Imaging performed in the past. Future Testing and Treatments Planned None reported Treatment Goals Patient/Caregiver Goals 1. Patient would like to eliminate the pain. 2. To know ankle exercises to prevent recurrent ankle sprain . 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 [place] hiking. Current Functional Impairments (Reported) Functional Limitations- ADL's Indep with minimal difficulty in prolong standing Functional Limitations- Mobility/Gait Indep with no AD with no gait deviation Functional Limitations- Work/School Limited with prolong standing Functional Limitations- Recreation/ Pain increases with prolong Hobbies walking Personal Factors Other Personal Factors That May Effect None identified Therapy/Recovery PT-OP-C Subjective Start: 04/23/19 17:02 Freq: Status: Active Protocol: Document 05/15/19 14:29 EA (Rec: 05/15/19 14:38 EA [id number]) OP-PT Subjective Patient Comments Patient Comments Nancy strated with warm up to eliptical M prior to sched session and dnies any pain but stiffness prior to warm up . PT-OP-F Manual Assessment Start: 04/23/19 17:02 Freq: Status: Active Protocol: Document 04/23/19 17:00 EA (Rec: 04/24/19 17:42 EA [id number]) Manual Assessments Soft Tissue Assessment Soft Tissue Mobility Assessment Tightness to Right ankle PF, Invertors Joint Mobility Assessment Joint Mobility Assessment Normal TC joint mobility. PT-OP-G Mobility & Gait Start: 04/23/19 17:02 Freq: Status: Active Protocol: Document 04/23/19 07:00 EA (Rec: 04/25/19 07:23 EA [id number]) OP Gait Assessment Comments Gait Comments Gait identified with near to normal gait Stair Climbing Evaluation Comments Stair Climbing Comments Min difficulty with stair descent leading with left PT-OP-J Posture/Palpation/Skin Start: 04/23/19 17:02 Freq: Status: Active Protocol: Document 04/23/19 17:00 EA (Rec: 04/24/19 17:42 EA [id number]) Posture Evaluation Comments Posture Comments Forefoot varus,right Palpation Assessment Location One Palpation Location Right ant talofib, calcaneofib lig Palpation Findings Tenderness PT-OP-K Range of Motion Start: 04/23/19 17:02 Freq: Status: Active Protocol: Document 04/23/19 17:10 EA (Rec: 04/23/19 17:13 EA [id number]) Hip Goniometric Range of Motion Hip Right Active Hip ROM WFL Yes Knee Goniometric Range of Motion Knee Right Knee ROM WFL Yes Ankle and Foot Goniometric Range of Motion Ankle and Foot Right Active Ankle/Foot ROM WFL Yes PT-OP-L Special Tests Start: 04/23/19 17:02 Freq: Status: Active Protocol: Document 04/23/19 17:13 EA (Rec: 04/23/19 17:14 EA [id number]) Special Tests Foot/Ankle Special Tests Rodriguez Test Results - Anterior Draw Test Results - Talor Tilt Test Results Varus + PT-OP-M Strength Start: 04/23/19 17:02 Freq: Status: Active Protocol: Document 04/23/19 17:10 EA (Rec: 04/23/19 17:13 EA [id number]) Ankle/Foot Strength Ankle and Foot Manual Muscle Testing Left Dorsiflexion (L4) 5 Normal Plantarflexion (S1) 5 Normal Inversion 5 Normal Eversion (S1) 5 Normal Right Dorsiflexion (L4) 5 Normal Plantarflexion (S1) 5 Normal Inversion 5 Normal Eversion (S1) 4- Good- PT-OP-Q Treatments Start: 04/23/19 17:02 Freq: Status: Active Protocol: Document 05/15/19 14:29 EA (Rec: 05/15/19 14:38 EA [id number]) Gym Equipment Sport Cord 1 Exercise Details Right side step Cord/Resistance red Reps/Duration 6 mins Comments Pause to middle for stability. Use BOSU for side to side squat Therapeutic Exercises Sitting Exercises 2 Sitting Exercise Name hip IR Side bilateral Equipment Used blue Reps/Minutes 8-12 x 2 sets 1 Sitting Exercise Name Ankle inversion Side right Equipment Used green TB Reps/Minutes x12 reps each Standing Exercises 7 Standing Exercise Name Small floor hops fwd ans sideways Reps/Minutes x 12 ft length x 2 6 Standing Exercise Name BUSO upside down: squat front raises Reps/Minutes x 12 reps x 2 squats Standing Exercise Name SL and double leg. Side bilateral Reps/Minutes 10 x 2 sets Comments with toes curling and increased arches 5 Standing Exercise Name Floors square bent knee Reps/Minutes x 3 laps without looking Comments In/out steps; slow to fast 4 Standing Exercise Name BUSO Squats: front and side raises Reps/Minutes x 12 reps x 2 3 Standing Exercise Name BUSO step up/down, side in and out Reps/Minutes x 30 secs x 3 2 Standing Exercise Name calf stretch: straight and bent knee Side right Reps/Minutes x 3 reps x 30SH 1 Standing Exercise Name FWD and BWD lunges Side bilateral Reps/Minutes 10 reps each x 2 Comments w/ DB front raise PT-OP-R Modalities Start: 04/23/19 17:02 Freq: Status: Active Protocol: Document 05/15/19 14:29 EA (Rec: 05/15/19 14:38 EA [id number]) Hot Pack/Cold Pack Treatment Cold Pack Location right ankle Patient Position Sitting Treatment Duration (minutes) 13 Patient Tolerance Good PT-OP-T Assessment and Plan Start: 04/23/19 17:02 Freq: Status: Active Protocol: Document 05/15/19 14:29 EA (Rec: 05/15/19 14:38 EA [id number]) Physical Therapy Assessment Assessment Summary Assessment Improved arch control during single leg squat with reduced knee bowing medially. No noted signs of discomfort today. Patient is progressing well. Physical Therapy Plan Next Visit Focus/Plan Next Note Type Treatment Note Next Visit Plan Progress strengthening,
--- NOTE | 2019-05-20 11:08 | PT.OTN ---
Current Diagnoses Pain in right ankle and joints of right foot (05/20/19) Physical Therapy Treatment Note PT-OP-A Visit Information Start: 04/23/19 17:02 Freq: Status: Active Protocol: Document 05/20/19 09:41 EA (Rec: 05/20/19 09:46 EA [id number]) Out-Patient Physical Therapy Visit Information Visit Information Visit Type Treatment Note Visit Start Time 09:00 Visit Stop Time 09:54 Total Visit Minutes 54 Visit Number 9 Number of LEAD [employer] TENDER Visits 2 PT-OP-B Current Condition Start: 04/23/19 17:02 Freq: Status: Active Protocol: Document 04/23/19 17:00 EA (Rec: 04/24/19 07:32 EA [id number]) Current Condition History of Current Condition Onset Date 2 months ago Current Complaints Right ankle pain History of Current Condition Patient reports present c/o right ankle pain started 2 months ago. She reports multiple history of both ankle sprain with no required hospitalization and healed with no formal PT. She reports pain mostly managed with ICE and OTC pain meds. She reports has very active lifestyle with regular few times a week of trail hiking which most of the time where she rolled her ankle. She denies diagnostic imaging in the past. Prior Treatments and Tests No formal treatent reported. No Imaging performed in the past. Future Testing and Treatments Planned None reported Treatment Goals Patient/Caregiver Goals 1. Patient would like to eliminate the pain. 2. To know ankle exercises to prevent recurrent ankle sprain . 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 [place] hiking. Current Functional Impairments (Reported) Functional Limitations- ADL's Indep with minimal difficulty in prolong standing Functional Limitations- Mobility/Gait Indep with no AD with no gait deviation Functional Limitations- Work/School Limited with prolong standing Functional Limitations- Recreation/ Pain increases with prolong Hobbies walking Personal Factors Other Personal Factors That May Effect None identified Therapy/Recovery PT-OP-C Subjective Start: 04/23/19 17:02 Freq: Status: Active Protocol: Document 05/20/19 09:41 EA (Rec: 05/20/19 09:46 EA [id number]) OP-PT Subjective Patient Comments Patient Comments Pt reports she has feeling much better until last day of the week where someone stepped on her foot while dancing; states it much feeling better now. PT-OP-F Manual Assessment Start: 04/23/19 17:02 Freq: Status: Active Protocol: Document 04/23/19 17:00 EA (Rec: 04/24/19 17:42 EA [id number]) Manual Assessments Soft Tissue Assessment Soft Tissue Mobility Assessment Tightness to Right ankle PF, Invertors Joint Mobility Assessment Joint Mobility Assessment Normal TC joint mobility. PT-OP-G Mobility & Gait Start: 04/23/19 17:02 Freq: Status: Active Protocol: Document 04/23/19 07:00 EA (Rec: 04/25/19 07:23 EA [id number]) OP Gait Assessment Comments Gait Comments Gait identified with near to normal gait Stair Climbing Evaluation Comments Stair Climbing Comments Min difficulty with stair descent leading with left PT-OP-J Posture/Palpation/Skin Start: 04/23/19 17:02 Freq: Status: Active Protocol: Document 04/23/19 17:00 EA (Rec: 04/24/19 17:42 EA [id number]) Posture Evaluation Comments Posture Comments Forefoot varus,right Palpation Assessment Location One Palpation Location Right ant talofib, calcaneofib lig Palpation Findings Tenderness PT-OP-K Range of Motion Start: 04/23/19 17:02 Freq: Status: Active Protocol: Document 04/23/19 17:10 EA (Rec: 04/23/19 17:13 EA [id number]) Hip Goniometric Range of Motion Hip Right Active Hip ROM WFL Yes Knee Goniometric Range of Motion Knee Right Knee ROM WFL Yes Ankle and Foot Goniometric Range of Motion Ankle and Foot Right Active Ankle/Foot ROM WFL Yes PT-OP-L Special Tests Start: 04/23/19 17:02 Freq: Status: Active Protocol: Document 04/23/19 17:13 EA (Rec: 04/23/19 17:14 EA [id number]) Special Tests Foot/Ankle Special Tests Rodriguez Test Results - Anterior Draw Test Results - Talor Tilt Test Results Varus + PT-OP-M Strength Start: 04/23/19 17:02 Freq: Status: Active Protocol: Document 04/23/19 17:10 EA (Rec: 04/23/19 17:13 EA [id number]) Ankle/Foot Strength Ankle and Foot Manual Muscle Testing Left Dorsiflexion (L4) 5 Normal Plantarflexion (S1) 5 Normal Inversion 5 Normal Eversion (S1) 5 Normal Right Dorsiflexion (L4) 5 Normal Plantarflexion (S1) 5 Normal Inversion 5 Normal Eversion (S1) 4- Good- PT-OP-Q Treatments Start: 04/23/19 17:02 Freq: Status: Active Protocol: Document 05/20/19 09:41 EA (Rec: 05/20/19 09:46 EA [id number]) Therapeutic Exercises Sitting Exercises 2 Sitting Exercise Name hip IR Side bilateral Equipment Used blue Reps/Minutes 8-12 x 2 sets 1 Sitting Exercise Name Ankle inversion/EVersion Side right Equipment Used green TB Reps/Minutes x12 reps each Standing Exercises 8 Standing Exercise Name 6 steps decsent and back up Reps/Minutes x 10 reps x 2 sets Comments lead by the left foot; cues to knee and ankle form. 7 Standing Exercise Name Small floor hops fwd ans sideways Reps/Minutes x 12 ft length x 2 6 Standing Exercise Name BUSO upside down: squat front raises Reps/Minutes x 12 reps x 2 squats Standing Exercise Name SL and double leg. Side bilateral Reps/Minutes 10 x 2 sets Comments with toes curling and increased arches 4 Standing Exercise Name BUSO Squats: front and side raises Reps/Minutes x 12 reps x 2 3 Standing Exercise Name BUSO step up/down, side in and out Reps/Minutes x 30 secs x 3 2 Standing Exercise Name calf stretch: straight and bent knee Side right Reps/Minutes x 3 reps x 30SH 1 Standing Exercise Name FWD and BWD lunges Side bilateral Reps/Minutes 10 reps each x 2 Comments w/ DB front raise PT-OP-R Modalities Start: 04/23/19 17:02 Freq: Status: Active Protocol: Document 05/20/19 09:41 EA (Rec: 05/20/19 09:46 EA [id number]) Hot Pack/Cold Pack Treatment Cold Pack Location right ankle Patient Position Sitting Treatment Duration (minutes) 14 Patient Tolerance Good PT-OP-T Assessment and Plan Start: 04/23/19 17:02 Freq: Status: Active Protocol: Document 05/20/19 09:41 EA (Rec: 05/20/19 09:46 EA [id number]) Physical Therapy Assessment Assessment Summary Assessment Tolerated treatment well with minor bilat. arch fatigue. Patient is progressing well. Physical Therapy Plan Next Visit Focus/Plan Next Note Type Treatment Note Next Visit Plan advance as tolerated
--- NOTE | 2019-05-23 09:37 | PT.OTN ---
Current Diagnoses Pain in right ankle and joints of right foot (05/23/19) Physical Therapy Treatment Note PT-OP-A Visit Information Start: 04/23/19 17:02 Freq: Status: Active Protocol: Document 05/23/19 08:09 EA (Rec: 05/23/19 08:18 EA [id number]) Out-Patient Physical Therapy Visit Information Visit Information Visit Type Treatment Note Visit Start Time 07:30 Visit Stop Time 08:15 Total Visit Minutes 43 Visit Number 10 PT-OP-B Current Condition Start: 04/23/19 17:02 Freq: Status: Active Protocol: Document 04/23/19 17:00 EA (Rec: 04/24/19 07:32 EA [id number]) Current Condition History of Current Condition Onset Date 2 months ago Current Complaints Right ankle pain History of Current Condition Patient reports present c/o right ankle pain started 2 months ago. She reports multiple history of both ankle sprain with no required hospitalization and healed with no formal PT. She reports pain mostly managed with ICE and OTC pain meds. She reports has very active lifestyle with regular few times a week of trail hiking which most of the time where she rolled her ankle. She denies diagnostic imaging in the past. Prior Treatments and Tests No formal treatent reported. No Imaging performed in the past. Future Testing and Treatments Planned None reported Treatment Goals Patient/Caregiver Goals 1. Patient would like to eliminate the pain. 2. To know ankle exercises to prevent recurrent ankle sprain . 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 [place] hiking. Current Functional Impairments (Reported) Functional Limitations- ADL's Indep with minimal difficulty in prolong standing Functional Limitations- Mobility/Gait Indep with no AD with no gait deviation Functional Limitations- Work/School Limited with prolong standing Functional Limitations- Recreation/ Pain increases with prolong Hobbies walking Personal Factors Other Personal Factors That May Effect None identified Therapy/Recovery PT-OP-C Subjective Start: 04/23/19 17:02 Freq: Status: Active Protocol: Document 05/23/19 08:09 EA (Rec: 05/23/19 08:18 EA [id number]) OP-PT Subjective Patient Comments Patient Comments Pt reports she is back to previous active lifestyle; states mild soreness to ankle but no increased of pain and swelling; overall she feels great with her recovery. She agreed to be discharged today. Patient Questionnaires Lower Extremity Functional Scale LEFS Score 80 LEFS Impairment 0% Impaired (Score 80) PT-OP-F Manual Assessment Start: 04/23/19 17:02 Freq: Status: Active Protocol: Document 04/23/19 17:00 EA (Rec: 04/24/19 17:42 EA [id number]) Manual Assessments Soft Tissue Assessment Soft Tissue Mobility Assessment Tightness to Right ankle PF, Invertors Joint Mobility Assessment Joint Mobility Assessment Normal TC joint mobility. PT-OP-G Mobility & Gait Start: 04/23/19 17:02 Freq: Status: Active Protocol: Document 04/23/19 07:00 EA (Rec: 04/25/19 07:23 EA [id number]) OP Gait Assessment Comments Gait Comments Gait identified with near to normal gait Stair Climbing Evaluation Comments Stair Climbing Comments Min difficulty with stair descent leading with left PT-OP-J Posture/Palpation/Skin Start: 04/23/19 17:02 Freq: Status: Active Protocol: Document 04/23/19 17:00 EA (Rec: 04/24/19 17:42 EA [id number]) Posture Evaluation Comments Posture Comments Forefoot varus,right Palpation Assessment Location One Palpation Location Right ant talofib, calcaneofib lig Palpation Findings Tenderness PT-OP-K Range of Motion Start: 04/23/19 17:02 Freq: Status: Active Protocol: Document 04/23/19 17:10 EA (Rec: 04/23/19 17:13 EA [id number]) Hip Goniometric Range of Motion Hip Right Active Hip ROM WFL Yes Knee Goniometric Range of Motion Knee Right Knee ROM WFL Yes Ankle and Foot Goniometric Range of Motion Ankle and Foot Right Active Ankle/Foot ROM WFL Yes PT-OP-L Special Tests Start: 04/23/19 17:02 Freq: Status: Active Protocol: Document 04/23/19 17:13 EA (Rec: 04/23/19 17:14 EA [id number]) Special Tests Foot/Ankle Special Tests Rodriguez Test Results - Anterior Draw Test Results - Talor Tilt Test Results Varus + PT-OP-M Strength Start: 04/23/19 17:02 Freq: Status: Active Protocol: Document 04/23/19 17:10 EA (Rec: 04/23/19 17:13 EA [id number]) Ankle/Foot Strength Ankle and Foot Manual Muscle Testing Left Dorsiflexion (L4) 5 Normal Plantarflexion (S1) 5 Normal Inversion 5 Normal Eversion (S1) 5 Normal Right Dorsiflexion (L4) 5 Normal Plantarflexion (S1) 5 Normal Inversion 5 Normal Eversion (S1) 4- Good- PT-OP-Q Treatments Start: 04/23/19 17:02 Freq: Status: Active Protocol: Document 05/23/19 08:09 EA (Rec: 05/23/19 08:18 EA [id number]) Cardio Equipment Treadmill Duration (Minutes) 7 Speed 3-6 interval x 3 Incline -3 to 0 Therapeutic Exercises Standing Exercises 9 Standing Exercise Name BUSO steady lunge: right leg on top of BUSO Reps/Minutes x 30secs x 3 reps 8 Standing Exercise Name 6 steps decsent and back up Reps/Minutes x 10 reps x 2 sets Comments lead by the left foot; cues to knee and ankle form. 7 Standing Exercise Name Small floor hops fwd ans sideways Reps/Minutes x 12 ft length x 2 6 Standing Exercise Name BUSO upside down: squat front raises Reps/Minutes x 12 reps x 2 squats Standing Exercise Name SL and double leg. Side bilateral Reps/Minutes 10 x 2 sets Comments with toes curling and increased arches 5 Standing Exercise Name Floors square bent knee Reps/Minutes x 3 laps without looking Comments In/out steps; slow to fast 4 Standing Exercise Name BUSO steady squats: ball throws Reps/Minutes x 12 reps x 2 3 Standing Exercise Name BUSO step up/down, side in and out Reps/Minutes x 30 secs x 3 Comments with ball throws 2 Standing Exercise Name calf stretch: straight and bent knee Side right Reps/Minutes x 3 reps x 30SH 1 Standing Exercise Name FWD and BWD lunges Side bilateral Reps/Minutes 10 reps each x 2 Comments w/ DB front raise PT-OP-R Modalities Start: 04/23/19 17:02 Freq: Status: Active Protocol: Document 05/20/19 09:41 EA (Rec: 05/20/19 09:46 EA [id number]) Hot Pack/Cold Pack Treatment Cold Pack Location right ankle Patient Position Sitting Treatment Duration (minutes) 14 Patient Tolerance Good PT-OP-T Assessment and Plan Start: 04/23/19 17:02 Freq: Status: Active Protocol: Document 05/23/19 08:09 EA (Rec: 05/23/19 08:18 EA [id number]) Physical Therapy Assessment Assessment Summary Assessment Patient shows great stability in all high stability and coordination exercises with no shows of discomfort. Patient is discharge today due to reaching all functional goals. Physical Therapy Plan Discharge Physical Therapy Discharge Reasons Goals Met
--- NOTE | 2019-05-23 09:37 | PT.OPDS ---
Current Diagnoses Pain in right ankle and joints of right foot (05/23/19) Visit Care Team Role Provider Type Roxy Loving MD Primary Care Provider Physician Specialty: Family Practice Address: [address], [place], [address] Email: [email or web address] ZACK Oliver Attending Provider Advanced Grinder Tender Specialty: Medical Address: [facility], [address] Email: [email or web address] Visit Number Visit Number 10 Discharge Summary PT-OP-B Current Condition Start: 04/23/19 17:02 Freq: Status: Active Protocol: Document 04/23/19 17:00 RUBY (Rec: 04/24/19 07:32 EA [id number]) Current Condition History of Current Condition Onset Date 2 months ago Current Complaints Right ankle pain History of Current Condition Patient reports present c/o right ankle pain started 2 months ago. She reports multiple history of both ankle sprain with no required hospitalization and healed with no formal PT. She reports pain mostly managed with ICE and OTC pain meds. She reports has very active lifestyle with regular few times a week of trail hiking which most of the time where she rolled her ankle. She denies diagnostic imaging in the past. Prior Treatments and Tests No formal treatent reported. No Imaging performed in the past. Future Testing and Treatments Planned None reported Treatment Goals Patient/Caregiver Goals 1. Patient would like to eliminate the pain. 2. To know ankle exercises to prevent recurrent ankle sprain . 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 [place] hiking. Current Functional Impairments (Reported) Functional Limitations- ADL's Indep with minimal difficulty in prolong standing Functional Limitations- Mobility/Gait Indep with no AD with no gait deviation Functional Limitations- Work/School Limited with prolong standing Functional Limitations- Recreation/ Pain increases with prolong Hobbies walking Personal Factors Other Personal Factors That May Effect None identified Therapy/Recovery PT-OP-C Subjective Start: 04/23/19 17:02 Freq: Status: Active Protocol: Document 05/23/19 08:09 EA (Rec: 05/23/19 08:18 EA [id number]) OP-PT Subjective Patient Comments Patient Comments Pt reports she is back to previous active lifestyle; states mild soreness to ankle but no increased of pain and swelling; overall she feels great with her recovery. She agreed to be discharged today. Patient Questionnaires Lower Extremity Functional Scale LEFS Score 80 LEFS Impairment 0% Impaired (Score 80) PT-OP-F Manual Assessment Start: 04/23/19 17:02 Freq: Status: Active Protocol: Document 04/23/19 17:00 EA (Rec: 04/24/19 17:42 EA [id number]) Manual Assessments Soft Tissue Assessment Soft Tissue Mobility Assessment Tightness to Right ankle PF, Invertors Joint Mobility Assessment Joint Mobility Assessment Normal TC joint mobility. PT-OP-G Mobility & Gait Start: 04/23/19 17:02 Freq: Status: Active Protocol: Document 04/23/19 07:00 EA (Rec: 04/25/19 07:23 EA [id number]) OP Gait Assessment Comments Gait Comments Gait identified with near to normal gait Stair Climbing Evaluation Comments Stair Climbing Comments Min difficulty with stair descent leading with left PT-OP-J Posture/Palpation/Skin Start: 04/23/19 17:02 Freq: Status: Active Protocol: Document 04/23/19 17:00 EA (Rec: 04/24/19 17:42 EA [id number]) Posture Evaluation Comments Posture Comments Forefoot varus,right Palpation Assessment Location One Palpation Location Right ant talofib, calcaneofib lig Palpation Findings Tenderness PT-OP-K Range of Motion Start: 04/23/19 17:02 Freq: Status: Active Protocol: Document 04/23/19 17:10 EA (Rec: 04/23/19 17:13 EA [id number]) Hip Goniometric Range of Motion Hip Right Active Hip ROM WFL Yes Knee Goniometric Range of Motion Knee Right Knee ROM WFL Yes Ankle and Foot Goniometric Range of Motion Ankle and Foot Right Active Ankle/Foot ROM WFL Yes PT-OP-L Special Tests Start: 04/23/19 17:02 Freq: Status: Active Protocol: Document 04/23/19 17:13 EA (Rec: 04/23/19 17:14 EA [id number]) Special Tests Foot/Ankle Special Tests Rodriguez Test Results - Anterior Draw Test Results - Talor Tilt Test Results Varus + PT-OP-M Strength Start: 04/23/19 17:02 Freq: Status: Active Protocol: Document 04/23/19 17:10 EA (Rec: 04/23/19 17:13 EA [id number]) Ankle/Foot Strength Ankle and Foot Manual Muscle Testing Left Dorsiflexion (L4) 5 Normal Plantarflexion (S1) 5 Normal Inversion 5 Normal Eversion (S1) 5 Normal Right Dorsiflexion (L4) 5 Normal Plantarflexion (S1) 5 Normal Inversion 5 Normal Eversion (S1) 4- Good- PT-OP-T Assessment and Plan Start: 04/23/19 17:02 Freq: Status: Active Protocol: Document 05/23/19 08:09 EA (Rec: 05/23/19 08:18 EA [id number]) Physical Therapy Assessment Assessment Summary Assessment Patient shows great stability in all high stability and coordination exercises with no shows of discomfort. Patient is discharge today due to reaching all functional goals. Physical Therapy Plan Discharge Physical Therapy Discharge Reasons Goals Met
== END 2019-05-24 08:21 | disposition home or self-care (01) ==
LOC: PHYS 07:30
PROVIDERS: PCP Family Medicine; Visit Provider Registered Nurse
DX: M25.571 Pain in right ankle and joints of right foot (principal)
CPT/HCPCS: 97010; 97110; 97140; 97161; 97535

== ENCOUNTER → 2019-07-29 12:45 | Outpatient (CLI) | payer OTHER, SELFPAY ==
[2019-07-31 16:47] LABS: Varicella IgG Antibody < 135.00 Index (< 135.00)
== END ==
PROVIDERS: PCP Family Medicine; Visit Provider Family Medicine
DX: Z01.84 Encounter for antibody response examination (principal)
CPT/HCPCS: 36415; 86787

== ENCOUNTER → 2019-08-26 09:38 | Outpatient (CLI) | payer OTHER, SELFPAY ==
[2019-08-26 16:38] LABS: Rubella Antibody IgG 22.7 IU/mL (>15)
== END ==
PROVIDERS: PCP Family Medicine; Visit Provider Family Medicine
DX: Z01.84 Encounter for antibody response examination (principal)
CPT/HCPCS: 86735; 86762; 86765; 86787

== ENCOUNTER → 2019-09-23 11:09 | Outpatient (CLI) | payer OTHER, SELFPAY ==
[2019-09-26 12:37] LABS: Mitogen-NIL > 10.00 IU/mL; NIL 0.02 IU/mL; QuantiFERON TB NEGATIVE (Negative); TB1-NIL 0.01 IU/mL; TB2-NIL < 0.01 IU/mL
== END ==
PROVIDERS: PCP Family Medicine; Visit Provider Family Medicine
DX: Z01.84 Encounter for antibody response examination (principal)
CPT/HCPCS: 36415; 86480

== ENCOUNTER → 2020-10-16 08:57 | Outpatient (CLI) | payer OTHER, SELFPAY ==
[2020-10-16] MEDS: COVID-19 VACC #1, MRNA(MOD) 100 MCG/0.5 ML VIAL IM (09:03)
== END ==
PROVIDERS: PCP Family Medicine; Visit Provider Internal Medicine
DX: Z23 Encounter for immunization (principal)
CPT/HCPCS: 0011A; 91301

== ENCOUNTER → 2020-11-13 08:58 | Outpatient (CLI) | payer OTHER, SELFPAY ==
[2020-11-13] MEDS: COVID-19 VACC #2, MRNA(MOD) 100 MCG/0.5 ML VIAL IM (09:03)
== END ==
PROVIDERS: PCP Family Medicine; Visit Provider Internal Medicine
DX: Z23 Encounter for immunization (principal)
CPT/HCPCS: 0012A; 91301

== ENCOUNTER → 2022-09-02 14:03 | Outpatient (CLI) | payer OTHER, SELFPAY ==
--- NOTE | 2022-09-02 14:04 | DI.RAD.S_ITS ---
PROCEDURE: XR SACRUM COCCYX MIN 2V INDICATIONS: Tailbone pain TECHNIQUE: 3 views of the sacrum and coccyx acquired. COMPARISON: None. FINDINGS: Bones: No fractures or dislocations. No suspicious bony lesions. Soft tissues: Visualized bowel gas pattern is normal. No suspicious soft tissue densities. IMPRESSION: No visualized acute fracture or dislocation. However, if clinical concern and/or pain persist, short interval imaging followup in 7-10 days is recommended, as occult injury cannot be definitively excluded. Dictated by: Manuela Gonzalez M.D. on 09/02/2022 at 16:35 Approved by: Manuela Gonzalez M.D. on 09/02/2022 at 16:36
== END ==
PROVIDERS: PCP Family Medicine; Referring Provider Family Medicine; Visit Provider Family Medicine
DX: M53.3 Sacrococcygeal disorders, not elsewhere classified (principal)
CPT/HCPCS: 72220

== ENCOUNTER → 2022-12-17 08:22 | Outpatient (CLI) | payer OTHER, SELFPAY ==
--- NOTE | 2022-12-17 08:25 | DI.RAD.S_ITS ---
PROCEDURE: XR ANKLE RT MIN 3V INDICATIONS: Right ankle pain TECHNIQUE: 3 views of the ankle were acquired. COMPARISON: None. FINDINGS: Bones: No fractures or dislocations. Ankle mortise is normally aligned. No suspicious bony lesions. The talar dome demonstrates no gail abnormality. Soft tissues: No tibiotalar joint effusion. Achilles tendon appears normal. IMPRESSION: No significant ankle plain film abnormality is seen. If it would be helpful for clinical management decision making, please consider a dedicated, scheduled ankle MRI for further evaluation (assuming that there is no contraindication). Dictated by: Seng Caruso M.D. on 12/17/2022 at 8:45 Approved by: Seng Caruso M.D. on 12/17/2022 at 8:46
== END ==
PROVIDERS: PCP Family Medicine; Referring Provider Nurse Practitioner Family; Visit Provider Nurse Practitioner Family
DX: M25.571 Pain in right ankle and joints of right foot (principal)
CPT/HCPCS: 73610

== ENCOUNTER → 2023-03-25 18:18 | Outpatient (CLI) | payer OTHER, SELFPAY ==
--- NOTE | 2023-03-25 18:20 | DI.RAD.S_ITS ---
PROCEDURE: XR ANKLE RT MIN 3V INDICATIONS: Right ankle pain TECHNIQUE: 3 views of the ankle were acquired. COMPARISON: [facility], , XR ANKLE RT MIN 3V, 12/17/2022, 8:22. FINDINGS: Bones: No fractures or dislocations. Ankle mortise is normally aligned. No suspicious bony lesions. Soft tissues: No tibiotalar joint effusion. Achilles tendon appears normal. IMPRESSION: Normal right ankle Dictated by: Austin Viramontes M.D. on 03/25/2023 at 17:55 Approved by: Austin Viramontes M.D. on 03/25/2023 at 17:56
== END ==
PROVIDERS: PCP Family Medicine; Referring Provider Registered Nurse; Visit Provider Registered Nurse
DX: M25.571 Pain in right ankle and joints of right foot (principal)
CPT/HCPCS: 73610

== ENCOUNTER → 2023-07-07 10:13 | Outpatient (CLI) | payer OTHER, SELFPAY ==
[2023-07-07 11:41] LABS: Add Manual Diff / Slide Review NO; Basophils Absolute Auto 100 /uL (0-100); Eosinophils Absolute Auto 100 /uL (0-450); Eosinophils Percent Auto 0.9 % (2-4); Hematocrit 36.6 % (36-46); Hemoglobin 12.1 g/dL (12.0-16.0); Lymphocytes Absolute Auto 1400 /uL (1100-4500); Lymphocytes Percent Auto 23.1 % (25-40); Mean Corpuscular HGB Conc 33.1 % (30-36); Mean Corpuscular Hemoglobin 26.9 PG (26-34); Mean Corpuscular Volume 81.3 fL (80-100); Monocytes Absolute Auto 400 /uL (0-900); Monocytes Percent Auto 5.7 % (3-14); Neutrophils Absolute Auto 4300 /uL (1500-7000); Neutrophils Percent Auto 69.3 % (50-75); Platelet Count 355 X10^3/uL (150-400); Red Cell Distribution Width 15.6 % (11.6-14.8); White Blood Cell Count 6.3 X10^3/uL (4.5-11.0)
[2023-07-07 11:55] LABS: Alanine Aminotransferase 20 IU/L (<35); Albumin 4.3 g/dL (3.5-5.0); Albumin Globulin Ratio 1.3 (1.0-2.8); Alkaline Phosphatase 65 U/L (38-126); Aspartate Aminotransferase 25 IU/L (14-36); BUN Creatinine Ratio 14.1 (6-22); Bilirubin Total 0.2 mg/dL (0.2-1.3); Blood Urea Nitrogen 9 mg/dL (7-17); Calcium 9.4 mg/dL (8.4-10.2); Carbon Dioxide 24 mmol/L (22-32); Chloride 102 mmol/L (98-107); Estimated Glomerular Filt Rate > 60 mL/min (>60); Globulin 3.4 g/dL (1.7-4.1); Glucose 103 mg/dL (70-100); HEMOLYSIS < 15 (0-50); Potassium 4.3 mmol/L (3.4-5.1); Sodium 137 mmol/L (137-145); Total Protein 7.7 g/dL (6.3-8.2)
[2023-07-07 12:25] LABS: TSH w/ Reflex to FT4 1.91 uIU/mL (0.47-4.68)
[2023-07-11 19:14] LABS: Tissue Transglutaminase IgA <2 U/mL (0-3)
[2023-07-11 23:27] LABS: Tissue Transglutaminase IgG <2 U/mL (0-5)
== END ==
PROVIDERS: PCP Family Medicine; Referring Provider Family Medicine; Visit Provider Family Medicine
DX: K52.9 Noninfective gastroenteritis and colitis, unspecified (principal); R00.0 Tachycardia, unspecified
CPT/HCPCS: 36415; 80053; 83516; 84443; 85025

== ENCOUNTER → 2023-07-08 09:08 | Outpatient (CLI) | payer OTHER, SELFPAY ==
[2023-07-08 15:13] LABS: Clostridium Difficile Tox PCR Negative for C. diff (Negative)
== END ==
PROVIDERS: PCP Family Medicine; Referring Provider Family Medicine; Visit Provider Family Medicine
DX: K52.9 Noninfective gastroenteritis and colitis, unspecified (principal)
CPT/HCPCS: 87045; 87177; 87493; 87899

== ENCOUNTER → 2023-07-24 07:47 | Outpatient (CLI) | payer OTHER, SELFPAY | PROVIDERS: PCP Family Medicine; Referring Provider Family Medicine; Visit Provider Family Medicine | DX: R00.0 Tachycardia, unspecified (principal) | CPT/HCPCS: 93246 ==

== ENCOUNTER 2023-12-01 15:09 | Day surgery (SDC) | payer OTHER, SELFPAY ==
--- NOTE | 2023-12-01 | PATH_ITS ---
[facility] Accession Number: [id number] No. of containers..02 Tissue . 01 Material submitted: . PART A: ileum - TERMINAL ILIUM PART B: colon - RANDOM COLON . 01 Diagnosis: Part A: TERMINAL ILIUM : Ileal mucosa with no diagnostic alterations. No active inflammation, granulomas, or dysplasia identified. No evidence of inflammatory bowel disease. . Part B: RANDOM COLON: Colonic mucosa with no diagnostic alterations. No active inflammation, granulomas, or dysplasia identified. No evidence of colitis. [facility] 12/06/2023 1224 Local . 01 Electronically signed: . Julian Miller MD, Pathologist NPI- [id number] . 01 Gross description: . Part A: TERMINAL ILIUM : Received in formalin are 2 fragment(s) of leo, soft tissue measuring 0.2 x 0.2 x 0.2 cm to 0.3 x 0.3 x 0.2 cm submitted entirely in 1 cassette(s) . Part B: RANDOM COLON: Received in formalin are 3 fragment(s) of leo, soft tissue measuring 0.1 x 0.1 x 0.1 cm to 0.3 x 0.2 x 0.2 cm submitted entirely in 1 cassette(s) /NAVJOT 12/06/2023 1223 Local . 01 Pathologist provided ICD-10: K52.9 . 01 CPT . 962481, 112101 Specimen Comment: A courtesy copy of this report has been sent to [phone] Performed at: 01 [facility] [address] [place] [address] [address] [facility], [place], [place] [id number] MD Julian Miller MD Phone: [phone]
[2023-12-01 15:26] VITALS: BP 159/88; PULSE 118; RESP 16; TEMP 36.1; O2SAT 100
[2023-12-01] MEDS: LACTATED RINGERS 1,000 ML 42 ML IV (15:37)
--- NOTE | 2023-12-01 16:08 | PM.HP.1 ---
History of Present Illness History of Present Illness Date Patient Seen: 12/01/23 Time Patient Seen: 16:08 Chief complaint: Dx Colonoscopy Narrative: 33-year-old woman with chronic diarrhea here for diagnostic colonoscopy. Since last seen minimal rectal bleeding. [facility] Medical History Anxiety Family History Father Hypertension Grandfather Mental health problem Grandmother Cancer Mother Hypertension Mental health problem Grandfather Heart disease Social History marital status: household members: spouse lives independently: Yes occupational status: employed Smoking Status: Never smoker alcohol intake: current substance use type: marijuana Meds Home Medications and Allergies Home Medications Medication Instructions Recorded Confirmed Type alprazolam 0.5 mg tablet 0.5 mg PO BEDTIME PRN anxiety #10 01/15/20 12/01/23 Rx tabs norethindrone acetate 1.5 1 tab PO QDAY #90 tabs 07/28/23 12/01/23 Rx mg-ethinyl estradiol 30 mcg tablet (Loestrin) Allergies Allergy/AdvReac Type Severity Reaction Status Date / Time co-trimoxazole Allergy Mild lip Uncoded 08/11/23 09:41 swelling Exam Vital Signs (past 8 hours): - 12/01/23 15:26 Temperature 97 F L Pulse Rate 118 H Respiratory Rate 16 Blood Pressure 159/88 H Pulse Oximetry 100 Oxygen Delivery Method Room Air Oxygen Delivery Method Room Air Narrative Exam Narrative: General adult woman alert oriented no acute distress Chest nonlabored respiration Extremities warm well perfused Assessment & Plan Assessment & Plan narrative: 33-year-old with chronic diarrhea here for a diagnostic colonoscopy possible hemorrhoidal banding. Technical details were discussed. Risks, benefits, alternatives explained. Risks including but not limited to myocardial infarction, aspiration, bleeding, pain, missed lesion, incomplete examination, need for further radiographic studies, colonic perforation, and need for major abdominal surgery were discussed. All questions were answered to their satisfaction, and they are in agreement with this plan.
[2023-12-01 16:25] VITALS: BP 113/65; PULSE 83; RESP 18; TEMP 36.9; O2SAT 97
--- NOTE | 2023-12-01 16:31 | P.OP.COLON_ITS ---
Operative Date/Time/Diagnoses Date of procedure: 12/01/23 Time of procedure: 16:31 Pre-op diagnosis: Chronic diarrhea Procedure & Clinicians Study performed: Colonoscopy Same procedure as scheduled: Yes Indications: Chronic diarrhea Surgeon: Andrew Mackenzie Procedure Notes Procedure in detail: The history and physical was performed/updated and the patient is ASA class is 2. The procedure was discussed in detail with the patient. Potential risks complications including infection, bleeding, missed diagnosis, perforation, need for surgery, and were explained. Their questions were answered and informed consent was obtained. Patient was brought to the procedure room and placed standard monitoring equipment. The patient's vital signs were monitored continuously throughout the entire procedure. Prior to starting time-out was performed. The patient was placed in the left lateral recumbent position. Procedural sedation was administered by anesthesia. Examination began with a thorough inspection of the perianal area there was no evidence of fissures, fistulae, external hemorrhoids or cutaneous malignancy. The colonoscopy scope was then placed into the anal canal and was advanced to the cecum, which was identified by the ileocecal valve, the appendiceal orifice and the confluence of the taenia. The scope was then slowly withdrawn examining colon thoroughly in all directions, irrigating it of any residual stool. The scope was retroflexed within the rectum The patient tolerated the procedure well. They will be discharged once criteria are met. The prep was of good/excellent quality. The withdrawl time was. Six Minutes. FINDINGS * Normal healthy colonic mucosa. Random biopsies of the colon were performed with forceps. No masses polyps or inflammation. * Normal terminal ileum. Biopsy of the terminal ileum was performed with forceps. * Minimal internal hemorrhoid tissue not sufficient for banding Specimen(s): other (Terminal ileum and random colonic biopsies) Impression: Normal colonoscopy Post-procedure Plan for aftercare: Follow up endoscopic biopsy. Disposition: same day surgery
[2023-12-01 16:32] VITALS: BP 112/66; PULSE 79; RESP 18; O2SAT 97
[2023-12-01 16:39] VITALS: BP 124/78; PULSE 98; RESP 14; TEMP 36.6; O2SAT 99
[2023-12-01 16:43] VITALS: BP 124/74; PULSE 85; RESP 12; O2SAT 99
== END 2023-12-01 16:54 | disposition home or self-care (01) ==
PROVIDERS: PCP Family Medicine; Referring Provider Surgery; Visit Provider Surgery
PROC: 0DJD8ZZ Inspection of Lower Intestinal Tract, Via Natural or Artificial Opening Endoscopic (ICD-10-PCS; CPT 45378; principal; 2023-12-01 14:30)
DX: R19.7 Diarrhea, unspecified (principal); K64.8 Other hemorrhoids
CPT/HCPCS: 45380; 81025; J2704

== ENCOUNTER → 2024-04-08 12:11 | Outpatient (CLI) | payer OTHER, SELFPAY ==
--- NOTE | 2024-04-08 12:13 | DI.RAD.S_ITS ---
PROCEDURE: XR TIBIA FUBULA RT 2V INDICATIONS: pain TECHNIQUE: 2 views of the tibia and fibula were acquired. COMPARISON: CR, XR ANKLE RT MIN 3V, 03/25/2023, 18:23. FINDINGS: Bones: No fractures or dislocations. No suspicious bony lesions. Soft tissues: No suspicious soft tissue calcifications or masses. IMPRESSION: No visualized acute fracture or dislocation. However, if clinical concern and/or pain persist, short interval imaging followup in 7-10 days is recommended, as occult injury cannot be definitively excluded. Dictated by: Manuela Gonzalez M.D. on 04/08/2024 at 23:05 Approved by: Manuela Gonzalez M.D. on 04/08/2024 at 23:06
== END ==
PROVIDERS: PCP Family Medicine; Referring Provider Family Medicine; Visit Provider Family Medicine
DX: S86.891A Other injury of other muscle(s) and tendon(s) at lower leg level, right leg, initial encounter (principal); X58.XXXA Exposure to other specified factors, initial encounter
CPT/HCPCS: 73590

== ENCOUNTER → 2025-02-21 11:02 | Outpatient (CLI) | payer OTHER, SELFPAY ==
--- NOTE | 2025-02-21 11:03 | DI.RAD.S_ITS ---
PROCEDURE: XR ANKLE RT MIN 3V INDICATIONS: pain TECHNIQUE: 3 views of the ankle were acquired. COMPARISON: [facility], CR, XR ANKLE RT MIN 3V, 03/25/2023, 18:23. [facility], CR, XR ANKLE RT MIN 3V, 12/17/2022, 8:22. FINDINGS: Bones: No fractures or dislocations. Ankle mortise is normally aligned. No suspicious bony lesions. Soft tissues: No tibiotalar joint effusion. Achilles tendon appears normal. IMPRESSION: No acute osseous abnormality. If pain persists with conservative management, consider repeat x-ray in 10-14 days or cross-sectional imaging. Dictated by: Michael Gregorio M.D. on 02/21/2025 at 16:05 Approved by: Michael Gregorio M.D. on 02/21/2025 at 16:06
[2025-02-21 12:20] LABS: C-Reactive Protein Quant 0.9 mg/dL (<1.0)
[2025-02-21 12:26] LABS: Rheumatoid Factor < 8.6 IU/mL (<12.0)
[2025-02-21 12:30] LABS: Erythrocyte Sedimentation Rate 30 MM/HR (0-20)
[2025-02-24 15:39] LABS: CCP Antibodies IgG/IgA 0 units (0-19)
== END ==
PROVIDERS: PCP Family Medicine; Referring Provider Family Medicine; Visit Provider Family Medicine
DX: R52 Pain, unspecified (principal)
CPT/HCPCS: 36415; 73610; 85651; 86140; 86200; 86430

== ENCOUNTER → 2025-05-05 19:09 | Outpatient (CLI) | payer OTHER, SELFPAY ==
--- NOTE | 2025-05-05 19:10 | DI.MRI.S_ITS ---
PROCEDURE: MR ANKLE RT WO CON INDICATIONS: ankle pain TECHNIQUE: Noncontrast sagittal T1 spin echo and T2 fast spin echo with fat saturation, axial proton density fast spin echo and T2 fast spin echo with fat saturation, coronal T1 spin echo and T2 fast spin echo with fat saturation through the ankle/hindfoot. COMPARISON: [facility], CR, XR ANKLE RT MIN 3V, 02/21/2025, 11:06. FINDINGS: Image quality: Excellent Tendons: Mild tenosynovitis of the posterior tibialis. The flexor digitorum longus, and the flexor hallucis longus are unremarkable. The extensor tendons are unremarkable. The peroneal tendons are unremarkable. The distal Achilles tendon is unremarkable. Ligaments: The anterior and the posterior tibiofibular ligaments are intact. High-grade tear of the anterior talofibular ligament, at the fibular insertion. The posterior talofibular ligament is intact. The calcaneofibular ligament is unremarkable. Mild sprain of the deep portion deltoid ligament. Sinus tarsi: No fibrosis Plantar fascia: Unremarkable Muscles: Normal in signal Bones: 3 mm subchondral marrow edema in the lateral talus dome, representing stage I osteochondral injury. No acute fracture. Mild marrow edema of the talus neck about the sinus tarsi, nonspecific. Small tibiotalar and posterior subtalar effusion. IMPRESSION: 1. High-grade tear of the anterior talofibular ligament. 2. Mild sprain of the deep portion of the deltoid ligament. 3. 3 mm stage I osteochondral injury in the lateral talus dome. Dictated by: Anika Smart M.D. on 05/06/2025 at 10:28 Approved by: Anika Smart M.D. on 05/06/2025 at 10:36
== END ==
PROVIDERS: PCP Family Medicine; Referring Provider Physician Assistant Surgical; Visit Provider Physician Assistant Surgical
DX: S93.04XA Dislocation of right ankle joint, initial encounter (principal); S93.491A Sprain of other ligament of right ankle, initial encounter; S93.421A Sprain of deltoid ligament of right ankle, initial encounter; M25.471 Effusion, right ankle; M25.571 Pain in right ankle and joints of right foot; G89.29 Other chronic pain; X58.XXXA Exposure to other specified factors, initial encounter
CPT/HCPCS: 73721

== ENCOUNTER → 2025-06-09 09:15 | Outpatient (CLI) | payer OTHER, SELFPAY ==
--- NOTE | 2025-06-09 09:50 | DI.MRI.S_ITS ---
PROCEDURE: MR KNEE RT WO CON INDICATIONS: knee pain TECHNIQUE: Noncontrast sagittal PD fast spin echo and T2 fast spin echo with fat saturation, sagittal 3-D FLASH with fat saturation; coronal T1 spin echo and PD fast spin echo with fat saturation, and axial PD fast spin echo with fat saturation through the knee. COMPARISON: None. FINDINGS: Quality: Adequate Menisci: Medial meniscus: Intact Lateral meniscus: Intact Cruciate ligaments: Anterior cruciate ligament: Intact Posterior cruciate ligament: Intact Collateral ligaments: Medial collateral ligament: Intact Lateral collateral ligament complex: Intact Extensor mechanism: Quadriceps tendon: Intact Patellar tendon: Intact Retinaculum: Intact Fat pads: Unremarkable Cartilage: Full-thickness cartilage fissuring in the medial trochlear groove with subchondral marrow edema like lesion. Near full-thickness cartilage fissuring in the medial patella. Bones: No fracture. Fluid spaces: Joint: Physiologic fluid. 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 Dictated by: Spencer Markham M.D. on 06/09/2025 at 10:45 Approved by: Spencer Markham M.D. on 06/09/2025 at 10:48
== END ==
PROVIDERS: PCP Family Medicine; Referring Provider Family Medicine; Visit Provider Family Medicine
DX: M22.8X1 Other disorders of patella, right knee (principal); M25.569 Pain in unspecified knee
CPT/HCPCS: 73721

== ENCOUNTER 2025-06-27 09:45 | Outpatient (RCR) | payer OTHER, SELFPAY ==
--- NOTE | 2025-05-16 17:38 | OT.OPPOC ---
Physical, Occupational & Speech Therapy At [facility] Nancy Ho [id number] 1990 Visit Care Team Role Provider Type Roxy Loving MD Attending Provider Physician Family Provider Primary Care Provider Referring Provider Address: [address] [place] [address], [id number] Occupational Therapy Plan of Care OT Outpatient Adult Evaluation Start: 05/16/25 13:34 Freq: Status: Active Protocol: Document 05/16/25 14:30 (Rec: 05/16/25 13:42 [id number]) General Information - Adult Visit Information Visit Number 1 of 12 Plan of Care Dates 05/16/25-08/08/25 Insurance pre-auth required all visits;no copay; visit limit Information subject to authorization Session Time Visit Start Date 05/16/25 Visit Start Time 14:30 Visit Stop Time 15:15 Setting Treatment Setting Outpatient Care Visit Type Note Type Initial Evaluation Referral Referring Physician Dr. Marizol Loving Reason for Referral bilateral hand pain Identification Identification Yes Confirmed Identification EMR Confirmed By Medical Information Medical History remote history of multiple LE joint dislocations and sprains, remote L wrist fracture Social Information Social History It just kind of comes and goes and I haven't been able to pinpoint what sets it off or makes it better Patient Questionnaires Quick Dash- Upper Extremity Quick Dash UE Score 15.9 Quick Dash UE 1 to 19% Impaired (Score 1-19) Impairment Quick Dash- Work and Sports Modules Quick Dash W&S Score W: 43.75; S: 31.25 Quick Dash Work and 40 to 59% Impaired (Score 40-59) Sport Impairment Goals Objective Measurements Objective AROM/MMT: WFL Measurements Manager Technical Support: L - 75,75,80 Avg 76.7lb; R - 75,80,80 Avg 78.3 ( no pain during active firer powerhouse with delayed 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 Education was provided regarding the limited role of passive modalities for long-term change, with recommendation to use thermal modalities as needed for comfort only. Kinesio taping for De Quervain?s-type symptoms was reviewed as a potential supportive strategy during work tasks. Patient was instructed in initiation of closed-chain stabilization activities in pain-free ranges, including quadruped positioning with partial weightbearing through the wrists and prayer- position isometrics to promote joint co-contraction and stability. She was advised to begin cautious weightbearing through the upper extremities for proprioceptive input and graded joint compression/ distraction, as tolerated, through yoga or stabilization drills. Activity modification education was provided to avoid aggravating gripping or resisted thumb extension tasks until symptoms improve. Short Term Goals Short Term Goals Within 4 weeks: 1. Patient will demonstrate independence with a 3?4 exercise home program emphasizing closed-chain stabilization and proprioceptive training in pain-free ranges, with correct technique and no symptom increase. 2. Patient will report a 25% reduction in frequency of wrist aching (self-reported baseline vs. 4-week check- in) during work or leisure activities. 3. Patient will tolerate 1?2 minutes of partial weightbearing in quadruped position with no greater than 2/10 increase in wrist discomfort, to promote functional joint stability. Veterinary Microbiologist Goals Veterinary Microbiologist Goals Within 8 weeks: 1. Patient will demonstrate pain-free tolerance of functional gripping tasks (e.g., knitting or work- related patient handling) without delayed wrist ache in at least 3 consecutive sessions. 2. Patient will report QuickDASH Work module score improvement from 43.75 to </=15, indicating reduced disability and increased perception of independence with daily function. 3. Patient will perform 5 minutes of yoga or similar closed-chain/proprioceptive activity involving sustained wrist weightbearing with <2/10 discomfort, supporting return to fitness and leisure activities. 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 She reports a two-year history of intermittent, dull aching pain that fluctuates in 2 ?4 month cycles without a clear pattern or identifiable aggravating activity. The pain is described as a constant 2/10 baseline with episodic flares up to 4/10, localized primarily to the dorsal wrist just ulnar to center on the right, and aggravated by gripping, pulling with the fingers, or resisted thumb extension. She denies numbness or tingling and notes minimal benefit from prior use of thermal modalities or kinesio taping. Self-mobilization occasionally provides transient relief, though not consistently. Her family history is notable for generalized joint hypermobility, and she endorses a personal history of frequent lower extremity sprains and dislocations, though no formal connective tissue diagnosis has been made. Current testing demonstrated AROM and MMT within functional limits, with symmetrical firer powerhouse and pinch strength bilaterally. No acute weakness or range limitation was identified, though she presents with apparent hypermobility. Manager Technical Support testing produced no immediate pain but resulted in delayed aching at the right ulnar styloid. QuickDASH scores revealed mild disability overall (15.9) with moderate impact reported in work (43.75) and sports/leisure tasks (31.25). 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 Occasional De Quervain?s-type symptoms ( provoked by resisted thumb extension) may represent intermittent tendon irritation in addition to the underlying joint instability. Prognosis is favorable with an emphasis on proprioceptive training, closed- chain stabilization, and activity modification to reduce recurrent strain on the hypermobile wrist structures. Reviewed with Goals,Progress Being Made,Home Exercise Program Patient Patient Good Understanding Plan Length of treatment 12 (weeks) Plan of Care Start 05/16/25 Date Plan of Care End 08/08/25 Date Treatment Frequency Once a Week Treatment Duration 45 Minutes Therapeutic Contents Active Range of Motion,Client Education,Functional Activities,Home Exercise Program,Manual Therapy, Education,Neuromuscular Re-Education,Self-Care, Stretching/Flexibility Activities,Therapeutic Activities,Therapeutic Exercises,Modalities Modalities As Needed Types of Modalities Ice Massage,Other Additional Types of MHP, paraffin Modalities Patient Instruction Home Exercise Program,Plan of Care,Questions/Concerns Patient Continue with Current Program Recommendations Electronically Signed by: Racquel Bennett OT 05/16/25 [id number] If you are in agreement with this Plan of Care, please return a signed and dated copy. I have reviewed this Plan of Care and certify that the skilled therapy services above are required to meet the patient?s needs. Physician Signature Date Printed Name and Credentials Clinical Instructor Signature Printed Name and Credentials
--- NOTE | 2025-05-23 10:44 | OT.OP.TRT ---
Visit Care Team Role Provider Type Roxy Loving MD Attending Provider Physician Family Provider Primary Care Provider Referring Provider Specialty: Family Practice Address: [address] [place] [address], [facility], [place], [address] Email: [email or web address] Occupational Therapy Treatment Note OT Outpatient Treatment Note - Adult Start: 05/16/25 13:34 Freq: Status: Active Protocol: Document 05/23/25 09:45 (Rec: 05/22/25 18:07 [id number]) OT Outpatient Adult Treatment Note Session Time Visit Start Date 05/23/25 Visit Start Time 09:45 Visit Stop Time 10:25 Visit Information Visit Number 2 of 12 Plan of Care Dates 05/16/25-08/08/25 Insurance pre-auth required all visits;no copay; visit limit Information subject to authorization Setting Treatment Setting Outpatient Care Visit Type Note Type Treatment Note - Subjective Identification Type Name Identification Medical Record Reconciled With Observations I started K taping and got a pop sockit and that has definitely made a noticeable difference! Patient/Caregiver Excellent Compliance with Home Exercise Program - Objective Short Term Goals Within 4 weeks: 1. Patient will demonstrate independence with a 3?4 exercise home program emphasizing closed-chain stabilization and proprioceptive training in pain-free ranges, with correct technique and no symptom increase. 2. Patient will report a 25% reduction in frequency of wrist aching (self-reported baseline vs. 4-week check- in) during work or leisure activities. 3. Patient will tolerate 1?2 minutes of partial weightbearing in quadruped position with no greater than 2/10 increase in wrist discomfort, to promote functional joint stability. Weather Forcaster Goals Within 8 weeks: 1. Patient will demonstrate pain-free tolerance of functional gripping tasks (e.g., knitting or work- related patient handling) without delayed wrist ache in at least 3 consecutive sessions. 2. Patient will report QuickDASH Work module score improvement from 43.75 to </=15, indicating reduced disability and increased perception of independence with daily function. 3. Patient will perform 5 minutes of yoga or similar closed-chain/proprioceptive activity involving sustained wrist weightbearing with <2/10 discomfort, supporting return to fitness and leisure activities. - Exercises 1 Descriptor Patient was instructed and demonstrated excellent return demonstration of a progressive home program emphasizing proprioceptive training, isometric stabilization, and gradual progression toward eccentric and concentric strengthening of the wrist. Interventions trialed today included prayer press isometrics, finger extension with rubber band resistance, table-top ball circles, and weightbearing stabilization on a Dynodisk and weighted ball to provide graded joint compression and proprioceptive challenge. Patient was educated in self-monitoring strategies and symptom-based progression or regression of exercises during the upcoming four-week period without direct therapy follow-up. Instruction and return demonstration were provided in kinesio taping for wrist support, with recommendation to continue taping and external offloading strategies?particularly during work activities?for the next 2?4 weeks to reduce joint strain while advancing stabilization. Patient reported positive prior experience with taping and activity modification (use of phone installation service representative) and demonstrated excellent comprehension and independence with all education provided. Visual Cues Min Cues Verbal Cues Min Cues Tolerance Good - Assessment Patient Response to Good Treatment Rehabilitation Good Potential Impairments ADLs,Coordination/Dexterity,Functional Activities,Pain, Identified Recreational Activities,Meaningful Activities Progress Towards Good Progress Goals Assessment of Improving Overall Progress Assessment of Pt participated in review of HEP and demo of k-taping Improvement for wrist, pt demonstrated excellent tolerance of proprioceptive and stabilization drills with no symptom exacerbation and good carryover of joint protection strategies. 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 Pt educated on progression of HEP as she will be out of town a few weeks and will need to grade exercises while she is away, all details included in handout for reference and pt verbalized excellent understanding of all teaching. She is well-positioned to independently manage a progressive stabilization program over the next several weeks, with skilled OT follow-up indicated upon return to assess tolerance to eccentric/ concentric strengthening and to advance toward higher- level functional demands for work and leisure as able. Pt will continue to benefit from skilled OT Home Exercise cautious WB through yoga-type positioning, avoid heavy Program gripping, isometric wrist extension/flexion/radial- ulnar deviation, table-top ball circles Reviewed with Goals,Progress Being Made,Home Exercise Program Patient/Caregiver Patient/Caregiver Good Understanding - Plan Therapy Continue with Current Program Recommendations Amount of Therapy 1-2 Months Recommended Frequency of Once a Week Treatment Length of Session 45 Minutes Treatment Emphasis rubberband finger ext w slow ecc return, modified plank Next Session , isometrics Therapeutic Contents Active Range of Motion,Client Education,Functional Activities,Home Exercise Program,Manual Therapy, Education,Neuromuscular Re-Education,Self-Care, Stretching/Flexibility Activities,Therapeutic Activities,Therapeutic Exercises,Modalities Modalities As Needed Types of Modalities Ice Massage,Other Additional Types of MHP, paraffin Modalities
--- NOTE | 2025-06-27 15:27 | OT.OP.DC ---
Visit Care Team Role Provider Type Roxy Loving MD Attending Provider Physician Family Provider Primary Care Provider Referring Provider Address: [address] [place] [address], [place], [address] Email: [email or web address] Outpatient OT Outpatient Adult Evaluation Start: 05/16/25 13:34 Freq: Status: Active Protocol: Document 05/16/25 14:30 (Rec: 05/16/25 13:42 [id number]) General Information - Adult Visit Information Visit Number 1 of 12 Plan of Care Dates 05/16/25-08/08/25 Insurance pre-auth required all visits;no copay; visit limit Information subject to authorization Session Time Visit Start Date 05/16/25 Visit Start Time 14:30 Visit Stop Time 15:15 Setting Treatment Setting Outpatient Care Visit Type Note Type Initial Evaluation Referral Referring Physician Dr. Marizol Loving Reason for Referral bilateral hand pain Identification Identification Yes Confirmed Identification EMR Confirmed By Medical Information Medical History remote history of multiple LE joint dislocations and sprains, remote L wrist fracture Social Information Social History It just kind of comes and goes and I haven't been able to pinpoint what sets it off or makes it better Patient Questionnaires Quick Dash- Upper Extremity Quick Dash UE Score 15.9 Quick Dash UE 1 to 19% Impaired (Score 1-19) Impairment Quick Dash- Work and Sports Modules Quick Dash W&S Score W: 43.75; S: 31.25 Quick Dash Work and 40 to 59% Impaired (Score 40-59) Sport Impairment Goals Objective Measurements Objective AROM/MMT: WFL Measurements Ct Scan Technician: L - 75,75,80 Avg 76.7lb; R - 75,80,80 Avg 78.3 ( 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 Education was provided regarding the limited role of passive modalities for long-term change, with recommendation to use thermal modalities as needed for comfort only. Kinesio taping for De Quervain?s-type symptoms was reviewed as a potential supportive strategy during work tasks. Patient was instructed in initiation of closed-chain stabilization activities in pain-free ranges, including quadruped positioning with partial weightbearing through the wrists and prayer- position isometrics to promote joint co-contraction and stability. She was advised to begin cautious weightbearing through the upper extremities for proprioceptive input and graded joint compression/ distraction, as tolerated, through yoga or stabilization drills. Activity modification education was provided to avoid aggravating gripping or resisted thumb extension tasks until symptoms improve. Short Term Goals Short Term Goals Within 4 weeks: 1. Patient will demonstrate independence with a 3?4 exercise home program emphasizing closed-chain stabilization and proprioceptive training in pain-free ranges, with correct technique and no symptom increase. 2. Patient will report a 25% reduction in frequency of wrist aching (self-reported baseline vs. 4-week check- in) during work or leisure activities. 3. Patient will tolerate 1?2 minutes of partial weightbearing in quadruped position with no greater than 2/10 increase in wrist discomfort, to promote functional joint stability. Residential Goals Child Protective Services Social Worker Goals Within 8 weeks: 1. Patient will demonstrate pain-free tolerance of functional gripping tasks (e.g., knitting or work- related patient handling) without delayed wrist ache in at least 3 consecutive sessions. 2. Patient will report QuickDASH Work module score improvement from 43.75 to </=15, indicating reduced disability and increased perception of independence with daily function. 3. Patient will perform 5 minutes of yoga or similar closed-chain/proprioceptive activity involving sustained wrist weightbearing with <2/10 discomfort, supporting return to fitness and leisure activities. 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 She reports a two-year history of intermittent, dull aching pain that fluctuates in 2 ?4 month cycles without a clear pattern or identifiable aggravating activity. The pain is described as a constant 2/10 baseline with episodic flares up to 4/10, localized primarily to the dorsal wrist just ulnar to center on the right, and aggravated by gripping, pulling with the fingers, or resisted thumb extension. She denies numbness or tingling and notes minimal benefit from prior use of thermal modalities or kinesio taping. Self-mobilization occasionally provides transient relief, though not consistently. Her family history is notable for generalized joint hypermobility, and she endorses a personal history of frequent lower extremity sprains and dislocations, though no formal connective tissue diagnosis has been made. 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 No acute weakness or range limitation was identified, though she presents with apparent hypermobility. Ct Scan Technician testing produced no immediate pain but resulted in delayed aching at the right ulnar styloid. QuickDASH scores revealed mild disability overall (15.9) with moderate impact reported in work (43.75) and sports/leisure tasks (31.25). 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 Occasional De Quervain?s-type symptoms ( provoked by resisted thumb extension) may represent intermittent tendon irritation in addition to the underlying joint instability. Prognosis is favorable with an emphasis on proprioceptive training, closed- chain stabilization, and activity modification to reduce recurrent strain on the hypermobile wrist structures. Reviewed with Goals,Progress Being Made,Home Exercise Program Patient Patient Good Understanding Plan Length of treatment 12 (weeks) Plan of Care Start 05/16/25 Date Plan of Care End 08/08/25 Date Treatment Frequency Once a Week Treatment Duration 45 Minutes Therapeutic Contents Active Range of Motion,Client Education,Functional Activities,Home Exercise Program,Manual Therapy, Education,Neuromuscular Re-Education,Self-Care, Stretching/Flexibility Activities,Therapeutic Activities,Therapeutic Exercises,Modalities Modalities As Needed Types of Modalities Ice Massage,Other Additional Types of MHP, paraffin Modalities Patient Instruction Home Exercise Program,Plan of Care,Questions/Concerns Patient Continue with Current Program Recommendations Functional Wrist/Hand Scan Hand Side Sensory Assessment Sensory Profile2 OT Outpatient Treatment Note - Adult Start: 05/16/25 13:34 Freq: Status: Active Protocol: Document 06/27/25 09:45 (Rec: 06/26/25 16:58 AH [id number]) OT Outpatient Adult Treatment Note Session Time Visit Start Date 06/27/25 Visit Start Time 09:45 Visit Stop Time 10:30 Visit Information Visit Number 3 of 12 Plan of Care Dates 05/16/25-08/08/25 Insurance pre-auth required all visits;no copay; visit limit Information subject to authorization Setting Treatment Setting Outpatient Care Visit Type Note Type Progress Note - Subjective Identification Type Name Identification Medical Record Reconciled With Observations It's so much better!! I am knitting more and doing pushups which, no pain at all! Patient/Caregiver Excellent Compliance with Home Exercise Program - Objective Objective QuickDASH: 0 (on eval 05/16/25: 15.9) Measurements Work Module: 0 (on eval 05/16/25: 43.6) Sports module: 0 (on eval 05/16/25: 31.25) Ct Scan Technician Strength (no deficit noted on eval however testing provoked pain, no pain noted this date): R: 75lb; L: 75lb 3-Jaw Jimmy Pinch: R: 15 ; L: 14 Lateral Pinch: R: 15 ; L: 14 Short Term Goals Within 4 weeks: 1. Patient will demonstrate independence with a 3?4 exercise home program emphasizing closed-chain stabilization and proprioceptive training in pain-free ranges, with correct technique and no symptom increase. [MET 06/27/25] 2. Patient will report a 25% reduction in frequency of wrist aching (self-reported baseline vs. 4-week check- in) during work or leisure activities. [MET 06/27/25] 3. Patient will tolerate 1?2 minutes of partial weightbearing in quadruped position with no greater than 2/10 increase in wrist discomfort, to promote functional joint stability. [MET 06/27/25] Residential Goals Within 8 weeks: 1. Patient will demonstrate pain-free tolerance of functional gripping tasks (e.g., knitting or work- related patient handling) without delayed wrist ache in at least 3 consecutive sessions. [MET 06/27/25] 2. Patient will report QuickDASH Work module score improvement from 43.75 to </=15, indicating reduced disability and increased perception of independence with daily function. [MET 06/27/25] 3. Patient will perform 5 minutes of yoga or similar closed-chain/proprioceptive activity involving sustained wrist weightbearing with <2/10 discomfort, supporting return to fitness and leisure activities. [ MET 06/27/25] - Treatment 1 Descriptor Patient participated in review and practice of her progressive home exercise program, which emphasized closed-chain stabilization, proprioceptive training, and gradual advancement into eccentric and concentric strengthening. She reported excellent adherence and demonstrated independence in all exercises with no questions or concerns. She reported full return to functional tasks including pushups, work-related activities, and weightbearing without pain. Education was provided on long-term symptom monitoring and self- management strategies to prevent flare-ups. Patient verbalized good understanding and demonstrated excellent insight into activity modification and joint protection principles. 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 She reported a family and personal history consistent with hypermobility, with evaluation findings notable for AROM and strength within functional limits but pain provocation at the right ulnar wrist following director of business operations testing. QuickDASH scores at evaluation indicated mild functional limitation (15.9 overall; Work 43.6; Sports 31.25). Education and treatment emphasized joint protection, proprioceptive and stabilization training, kinesio taping for offloading, and gradual progression from isometric to eccentric and concentric strengthening. Patient demonstrated excellent adherence and symptom monitoring, reporting progressive resolution of pain with successful return to work, fitness, and daily activities without limitation. At discharge, retesting revealed symmetrical director of business operations and pinch strength without pain provocation, and QuickDASH, Work, and Sports modules each scored 0, reflecting resolution of functional disability. All established short- and long-term goals have been met. Patient is independent with home exercise program and management strategies, demonstrates full understanding of activity modification, and is appropriate for discharge from OT at this time. Home Exercise cautious WB through yoga-type positioning, avoid heavy Program gripping, isometric wrist extension/flexion/radial- ulnar deviation, table-top ball circles Reviewed with Goals,Progress Being Made,Home Exercise Program Patient/Caregiver Patient/Caregiver Excellent Understanding - Plan Therapy Discharge to Home Exercise Program,Discharge from Recommendations Occupational Therapy Amount of Therapy 1-2 Months Recommended Frequency of Once a Week Treatment Length of Session 45 Minutes Therapeutic Contents Active Range of Motion,Client Education,Functional Activities,Home Exercise Program,Manual Therapy, Education,Neuromuscular Re-Education,Self-Care, Stretching/Flexibility Activities,Therapeutic Activities,Therapeutic Exercises,Modalities Modalities As Needed Types of Modalities Ice Massage,Other Additional Types of MHP, paraffin Modalities
== END 2025-07-04 09:26 | disposition home or self-care (01) ==
LOC: OT 09:45
PROVIDERS: Family Provider Family Medicine; PCP Family Medicine; Referring Provider Family Medicine; Visit Provider Family Medicine
DX: M79.641 Pain in right hand (principal); M79.642 Pain in left hand
CPT/HCPCS: 97110; 97165; 97530